=== PATIENT | female | born 1955 | race Caucasian/White ===

== ENCOUNTER 2016-12-17 16:05 | Emergency (ER) | payer BC ==
[~2016-12-17] VITALS: Ht 167.6 cm; Wt 121.0 kg
[~2016-12-17 16:05] MED LIST: ALBUAER19 INH; CMD25 PO; CMD5 PO; FLX10 PO; FURO-85 PO; HYDR-5688 PO; LVNIS120 SQ; MAGNESIUM PO; MOME50SP5; MULT-506 PO; NXM/40 PO; PRMVC TOP; SENN-61 PO; [UNRECOGNIZED DRUG - CODE] NAE; [UNRECOGNIZED DRUG - OTHER] PO
[2016-12-17 16:10] VITALS: TEMP 36.6; Ht 167.6 cm; Wt 121.0 kg
[2016-12-17 16:21] VITALS: O2SAT 100
[2016-12-17] MEDS ORDERED: LSX40 PO (16:46)
[2016-12-17] MEDS ORDERED: WARF5TAB7 PO (16:48)
[2016-12-17 16:53] LABS: BASO % 0.9 %; BASO ABS # 0.05 K/uL (0-0.2); COMPLETE YES; EOS % 3.4 %; HEMATOCRIT 44.8 % (37-47); IG% 0.5 %; LYMPH % 24.4 %; LYMPH ABS # 1.36 K/uL (1.2-3.4); MEAN CELL VOLUME 93.9 fL (80-100); MEAN CORPUSCULAR HEMOGLOBIN 32.1 pg (25-34); MEAN CORPUSCULAR HGB CONC 34.2 g/dl (32-36); MONO % 10.4 %; NEUT % 60.4 %; PLATELET COUNT 294 K/uL (130-400); RED BLOOD COUNT 4.77 M/uL (4.2-5.4); WHITE BLOOD COUNT 5.57 K/uL (4.8-10.8)
--- NOTE | 2016-12-17 16:57 | DIAGNOSTIC IMAGING REPORT ---
CHEST ONE VIEW PORTABLE HISTORY: 61 years-old Female Evaluate Fever/Sepsis COMPARISON: None available TECHNIQUE: Portable upright AP view of the chest FINDINGS: Cardiac silhouette is upper limits of normal. There is no pneumothorax, pleural effusion, focal airspace consolidation or overt pulmonary edema. The bones are grossly intact. IMPRESSION: No acute cardiopulmonary process. The above report was generated using voice recognition software. It may contain grammatical, syntax or spelling errors. Electronically signed by: Azael Nichols M.D. 12/17/2016 4:56 PM Dictated Date/Time: 12/17/2016 4:55 PM
[2016-12-17 17:01] LABS: INR 3.1 (0.9-1.1); PARTIAL THROMBOPLASTIN RATIO 1.5; PROTHROMBIN TIME (PATIENT) 34.9 SECONDS (9.0-12.0)
[2016-12-17 17:08] LABS: POINT OF CARE TROPONIN I < 0.030 ng/ml (0-0.045)
[2016-12-17 17:10] LABS: ALT/SGPT 19 U/L (12-78); AST/SGOT 13 U/L (15-37); BLOOD UREA NITROGEN 12 mg/dl (7-18); BUN/CREATININE RATIO 18.7 (10-20); CALCIUM 9.2 mg/dl (8.5-10.1); CARBON DIOXIDE 29 mmol/L (21-32); CHLORIDE 106 mmol/L (98-107); CREATININE 0.64 mg/dl (0.60-1.20); GLUCOSE 89 mg/dl (70-99); SODIUM 140 mmol/L (136-145)
[2016-12-17 17:15] LABS: ALKALINE PHOSPHATASE 137 U/L (45-117); CKMB/CK RATIO 0.7 (0-3.0)
--- NOTE | 2016-12-17 17:57 | EMERGENCY ROOM VISIT NOTE ---
History Report prepared by Leslie: Devante Elena Under the Supervision of: Dr. Philippe Crisostomo D.O. First contact with patient: 16:23 Chief Complaint: CHEST PAIN Stated Complaint: CHEST PAIN INTO BACK, TINGLING IN HANDS History of Present Illness The patient is a 61 year old female who presents to the Emergency Room with complaints of left sided dull chest pain that began 2 hours ago. She rates her pain a 4/10 in severity. At this time, the patient was walking down the hallway at school when she suddenly felt what she describes as a "punch" to her chest that went through to her back. This has never happened to her before. She notes that he pain is still there, but not as bad as it was when it started. When this occurred, the patient's states that she was very pale when he went to pick her up. She notes some increased work of breath before arrival, but she denies this symptom currently. She denies any fevers, chills, diaphoresis, nausea, vomiting, abdominal pain, shortness of breath, or leg pain/swelling at this time. 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 She has a history of a gastric bypass surgery. Source of History: patient Onset: 2 hours ago Position: chest (left) Symptom Intensity: 4/10 Quality: dull Timing: constant Associated Symptoms: + back pain, No fevers, No chills, No diaphoresis, No nausea, No vomiting, No abdominal pain Review of Systems See HPI for pertinent positives & negatives. A total of 10 systems reviewed and were otherwise negative. Family History Omitted secondary to the patient's age. Social History Smoking Status: Never Smoker Marital Status: Housing Status: lives with family Occupation Status: employed Current/Historical Medications Scheduled Esomeprazole Magnesium (Nexium), 40 MG PO QPM Furosemide (Furosemide), 40 MG PO DAILY Mometasone Furoate (Nasonex), 1 SPRAY NA QAM Multivitamin (Multivitamin), 1 TAB PO QPM Warfarin Sod (Jantoven), 5 MG PO DAILY [Calcium NITRATE], 1 TAB PO QPM [Magnesium], 500 MG PO BID Scheduled PRN Albuterol Inhaler (Ventolin Inhaler), 2 PUFFS INH QID PRN for SOB/Wheezing Allergies Coded Allergies: Amoxicillin (Verified Allergy, Unknown, HIVES, 12/17/16) Morphine (Verified Allergy, Unknown, HALLUCINATIONS, 12/17/16) Oxycodone (Unverified Allergy, Unknown, SEVERE PAIN, 12/17/16) Sulfa Antibiotics (Verified Allergy, Unknown, RASH, 12/17/16) Codeine (Verified Adverse Reaction, Unknown, IRRITABLE, 12/17/16) Physical Exam Vital Signs Date Time Temp Pulse Resp B/P (MAP) Pulse Ox O2 Delivery O2 Flow Rate FiO2 12/17/16 17:33 76 18 131/85 99 Room Air 12/17/16 16:44 100 Room Air 12/17/16 16:23 85 12/17/16 16:21 100 Room Air 12/17/16 16:10 36.6 81 16 148/91 98 Room Air Physical Exam CONSTITUTIONAL/VITAL SIGNS: Reviewed / noted above. GENERAL: Non-toxic in appearance. INTEGUMENTARY: Warm, dry, and [place]. HEAD: Normocephalic. EYES: without scleral icterus or trauma. ENT/OROPHARYNX: clear and moist. LYMPHADENOPATHY/NECK: Is supple without lymphadenopathy or meningismus. RESPIRATORY: Lungs clear and equal. CARDIOVASCULAR: Regular rate and rhythm. GI/ABDOMEN: Soft and nontender. No organomegaly or pulsatile mass. No rebound or guarding. Normal bowel sounds. EXTREMITIES: Warm and well perfused. BACK: No CVA tenderness. NEUROLOGICAL: Intact without focal deficits. PSYCHIATRIC: normal affect. MUSCULOSKELETAL: Normally developed with good muscle tone. Medical Decision & Procedures ER Provider Diagnostic Interpretation: Radiology results as stated below per my review and radiologist interpretation: CHEST ONE VIEW PORTABLE HISTORY: 61 years-old Female Evaluate Fever/Sepsis COMPARISON: None available TECHNIQUE: Portable upright AP view of the chest FINDINGS: Cardiac silhouette is upper limits of normal. There is no pneumothorax, pleural effusion, focal airspace consolidation or overt pulmonary edema. The bones are grossly intact. IMPRESSION: No acute cardiopulmonary process. The above report was generated using voice recognition software. It may contain grammatical, syntax or spelling errors. Electronically signed by: Azael Nichols M.D. 12/17/2016 4:56 PM Dictated Date/Time: 12/17/2016 4:55 PM Laboratory Results 12/17/16 16:40 Red Blood Count 4.77, Mean Corpuscular Volume 93.9, Mean Corpuscular Hemoglobin 32.1, Mean Corpuscular Hemoglobin Concent 34.2, Mean Platelet Volume 10.0, Neutrophils (%) (Auto) 60.4, Lymphocytes (%) (Auto) 24.4, Monocytes (%) (Auto) 10.4, Eosinophils (%) (Auto) 3.4, Basophils (%) (Auto) 0.9, Neutrophils # (Auto ) 3.36, Lymphocytes # (Auto) 1.36, Monocytes # (Auto) 0.58, Eosinophils # (Auto ) 0.19, Basophils # (Auto) 0.05 12/17/16 16:40 Test 12/17/16 16:40 12/17/16 16:49 White Blood Count 5.57 K/uL (4.8-10.8) Red Blood Count 4.77 M/uL (4.2-5.4) Hemoglobin 15.3 g/dL (12.0-16.0) Hematocrit 44.8 % (37-47) Mean Corpuscular Volume 93.9 fL (80-100) Mean Corpuscular Hemoglobin 32.1 pg (25-34) Mean Corpuscular Hemoglobin Concent 34.2 g/dl (32-36) Platelet Count 294 K/uL (130-400) Mean Platelet Volume 10.0 fL (7.4-10.4) Neutrophils (%) (Auto) 60.4 % Lymphocytes (%) (Auto) 24.4 % Monocytes (%) (Auto) 10.4 % Eosinophils (%) (Auto) 3.4 % Basophils (%) (Auto) 0.9 % Neutrophils # (Auto) 3.36 K/uL (1.4-6.5) Lymphocytes # (Auto) 1.36 K/uL (1.2-3.4) Monocytes # (Auto) 0.58 K/uL (0.11-0.59) Eosinophils # (Auto) 0.19 K/uL (0-0.5) Basophils # (Auto) 0.05 K/uL (0-0.2) RDW Standard Deviation 52.9 fL (36.4-46.3) RDW Coefficient of Variation 15.2 % (11.5-14.5) Immature Granulocyte % (Auto) 0.5 % Immature Granulocyte # (Auto) 0.03 K/uL (0.00-0.02) Prothrombin Time 34.9 SECONDS (9.0-12.0) Prothromb Time International Ratio 3.1 (0.9-1.1) Activated Partial Thromboplast Time 38.8 SECONDS (21.0-31.0) Partial Thromboplastin Ratio 1.5 Anion Gap 5.0 mmol/L (3-11) Est Creatinine Clear Calc Drug Dose 125.4 ml/min Estimated GFR () 113.2 Estimated GFR (Non- 97.7 BUN/Creatinine Ratio 18.7 (10-20) Calcium Level 9.2 mg/dl (8.5-10.1) Total Bilirubin 0.4 mg/dl (0.2-1) Direct Bilirubin < 0.1 mg/dl (0-0.2) Aspartate Amino Transf (AST/SGOT) 13 U/L (15-37) Alanine Aminotransferase (ALT/SGPT) 19 U/L (12-78) Alkaline Phosphatase 137 U/L (45-117) Total Creatine Kinase 105 U/L (26-192) Creatine Kinase MB 0.7 ng/ml (0.5-3.6) Creatine Kinase MB Ratio 0.7 (0-3.0) Troponin I < 0.015 ng/ml (0-0.045) Total Protein 7.6 gm/dl (6.4-8.2) Albumin 3.7 gm/dl (3.4-5.0) Lipase 100 U/L (73-393) Bedside D-Dimer 54 ng/mlFEU (0-450) Bedside Troponin I < 0.030 ng/ml (0-0.045) Laboratory results as stated above per my review. ECG Indication: chest pain Rate (beats per minute): 78 Rhythm: normal sinus Findings: no acute ischemic change, no ectopy ED Course 1623: Previous medical records were reviewed. The patient was evaluated in room B11B. A complete history and physical examination was performed. 1800: On reevaluation, the patient is resting. I discussed the results and findings with the patient. She verbalized agreement of the treatment plan. She was discharged home. Medical Decision Differentials considered include acute myocardial infarction, acute coronary syndrome, myocarditis, pericarditis, pericardial effusions /tamponade, esophageal perforation, thoracic aortic dissection, pulmonary embolism, pneumonia, pneumothorax, pancreatitis, shingles, acute cholecystitis, and perforated abdominal viscus. This is a 61-year-old female with a history of gastric bypass who presents to the ED with a chief complaint of left upper chest pain that radiates into her back. The patient started having the symptoms around 2:30 PM when she was walking down the [place]. She states that it felt like a soreness or tightness. She also states that the back of her bottom teeth felt a little weird. She denies having diaphoresis, nausea or shortness of breath although she stated that she had to concentrate on taking a deep breath. The patient reports being on Coumadin for history of a PE and factor V Leiden abnormality. The patient has a normal exam. Vital signs are normal. She is in no distress. An EKG shows a normal sinus rhythm. CBC is normal, INR is 3.1, d-dimer was normal, troponin is negative, complete metabolic panel was normal. Chest x-ray did not show acute disease. The patient was told results the test. She is felt to be stable for discharge. She was advised to return for worsening or new symptoms and otherwise follow-up with PCP for recheck. Medication Reconcilliation Current Medication List: was personally reviewed by me Blood Pressure Screening Patient's blood pressure: Elevated blood pressure Blood pressure disposition: Elevated BP felt to be situational Impression Primary Impression: Left sided chest pain Additional Impression: Back pain Scribe Attestation The scribe's documentation has been prepared under my direction and personally reviewed by me in its entirety. I confirm that the note above accurately reflects all work, treatment, procedures, and medical decision making performed by me. Departure Information Dispostion Home / Self-Care Referrals Ethan Wilcox M.D. (PCP) Forms Call Back Authorization, HOME CARE DOCUMENTATION FORM, IMPORTANT VISIT INFORMATION Patient Instructions Chest Pain - [facility], [facility] Additional Instructions Follow-up with your doctor for further care and evaluation in 1-2 days. Return to the emergency department for worsening or new symptoms or any concerns. You have been examined and treated today on an emergency basis only. This is not a substitute for, or an effort to provide, complete comprehensive medical care. It is impossible to recognize and treat all injuries or illnesses in a single emergency department visit. It is therefore important that you follow up closely with your doctor. Call as soon as possible for an appointment. Problem Qualifiers
[2016-12-17 18:16] VITALS: BP 117/81; PULSE 77; O2SAT 97
== END 2016-12-17 18:19 | disposition home or self-care (01) ==
LOC: C.EDB 16:06
DX: R07.9 Chest pain, unspecified (principal); M54.9 Dorsalgia, unspecified; Z98.84 Bariatric surgery status; Z79.01 Long term (current) use of anticoagulants; Z79.899 Other long term (current) drug therapy; Z86.711 Personal history of pulmonary embolism

== ENCOUNTER 2018-08-10 02:14 | Inpatient (IN) ==
[2018-08-10] MEDS ORDERED: ONDANSETRON INJ 2 MG/ML 2 ML VIAL IV STA (02:46)
[2018-08-10] MEDS ORDERED: SODIUM CHLORIDE 0.9% 1000ML 1,000 ML IV ONE (02:46)
[2018-08-10 02:54] LABS: Basophils # (auto) 0.01 K/uL (0-0.2); Basophils % (auto) 0.1 %; Eosinophils % (auto) 1.2 %; Hematocrit (blood only) 39.5 % (37-47); Hemoglobin 12.9 g/dL (12.0-16.0); Immature Granulocytes # (auto) 0.02 K/uL (0.00-0.02); Immature Granulocytes % (auto) 0.2 %; Lymphocytes # (auto) 0.89 K/uL (1.2-3.4); Lymphocytes % (auto) 10.7 %; Mean Corpuscular Hgb Conc 32.7 g/dL (32-36); Mean Platelet Volume 10.6 fL (7.4-10.4); Monocytes # (auto) 0.45 K/uL (0.11-0.59); Monocytes % (auto) 5.4 %; Neutrophils # (auto) 6.85 K/uL (1.4-6.5); Neutrophils % (auto) 82.4 %; Platelet Count 281 K/uL (130-400); RDW Standard Deviation 51.2 fL (36.4-46.3); White Blood Count 8.32 K/uL (4.8-10.8)
[2018-08-10] MEDS ORDERED: PANTOprazole 80 MG in DEXTROSE 5% 100 ML IV ONE (03:00)
[2018-08-10 03:01] LABS: iSTAT Creatinine 0.6 mg/dl (0.6-1.3); iSTAT Hemoglobin 12.9 g/dl (12.0-16.0); iSTAT Ionized Calcium 1.16 mmol/l (1.12-1.32); iSTAT Potassium 4.5 mEq/L (3.3-5.0)
[2018-08-10 03:06] LABS: INR 1.1 (0.9-1.1); Partial Thromboplastin Ratio 1.1; Partial Thromboplastin Time 29.3 Seconds (21.0-31.0); Prothrombin Time 11.4 Seconds (9.0-12.0)
[2018-08-10 03:19] LABS: Albumin Level 3.5 gm/dl (3.4-5.0); BUN Creatinine Ratio 53.5 (10-20); Bilirubin,Total 0.4 mg/dl (0.2-1); Calcium 8.7 mg/dl (8.5-10.1); Creatinine Clr Calc Pharmacy 123.4 ml/min; Est GFR (African American) 111.8; Est GFR (Non-African American) 96.5; Potassium 4.6 mmol/L (3.5-5.1); Total Protein 7.5 gm/dl (6.4-8.2)
[2018-08-10 03:20] LABS: Bilirubin Direct 0.1 mg/dl (0-0.2)
[2018-08-10] MEDS ORDERED: NITROGLYCERIN SL 0.4 MG/TAB TAB SL PRN (05:31)
[2018-08-10] MEDS ORDERED: FLUTICASONE PROPIONATE NA SPR 16 GM BTL PRN (05:31)
[2018-08-10] MEDS ORDERED: ACETAMINOPHEN 325 MG TAB PO PRN (05:31)
[2018-08-10] MEDS ORDERED: ALBUTEROL HFA 8 GM INHALER INH PRN (05:31)
[2018-08-10] MEDS ORDERED: HYDROmorphone INJ 0.5 MG/0.5 ML SYR IV PRN (05:31)
[2018-08-10] MEDS: SODIUM CHLORIDE 0.9% 1000ML 1,000 ML IV SCH ×2 (06:05→16:44)
[2018-08-10] MEDS: ONDANSETRON INJ 2 MG/ML 2 ML VIAL IV PRN ×2 (06:05→19:50)
--- NOTE | 2018-08-10 06:06 | Emergency Department Note ---
Entered by Scooby Cavanaugh acting as a scribe for Antonio Mixon MD ED Provider Note Name: Krystle Vergara Age: 62 Arrives Via: Private vehicle Informant: Patient and CC: Hematemesis, Hematochezia/Melena HPI: The patient is a 62 year old female who presents to the Emergency Room with complaints of intermittent hematochezia and hematemesis that began a couple of hours ago. The patient states that she has had 4 episodes of hematemesis over the past couple of hours. She also had a bowel movement that contained black stool, as well as red blood. The patient denies any history of similar symptoms. She has did have a gastric bypass surgery 11 years ago and is on Coumadin at baseline secondary to a history of DVT. The patient has a hip replacement surgery scheduled for this week, so her Coumadin was stopped 3 days ago. She started Lovenox today, which she has taken 2 dosages of. She is prescribed 120 mg of Lovenox BID. The patient denies any chest pain today, but does note that she felt "lightheaded" before she began vomiting last night. The patient does currently describe a discomfort in her abdomen as well as constant nausea. ROS: See above HPI for pertinent positives & negatives. A total of 10 systems reviewed and were otherwise negative. Past Medical History: Chronic back pain, DJD, DVT on Coumadin Past Surgical History: Gastric Bypass surgery Family History: non-contributory Social History: , Lives with spouse. Home Medications: Warfarin, Linzess, Gabapentin, Lasix, Nexium. Allergies Amoxicillin, Morphine, Oxycodone, Sulfa, Codeine Physical: Vitals: BP 152/88, Pulse 104, Resp 22, Temp 98.4, O2 sat of 97. Exam: GENERAL: Patient is uncomfortable appearing and mildly anxious appearing. In mild distress. EYES: No scleral icterus, unremarkable pupils. ENT: Mucous membranes moist, no nasal congestion. NECK: No masses appreciated, no meningismus, trachea is midline. RESPIRATORY: No dyspnea. Clear to auscultation and equal bilaterally. No wheeze, no rhonchi. CARDIOVASCULAR: Regular rate and rhythm. No murmurs, rubs, gallops appreciated. GASTROINTESTINAL: Abdomen soft, with vague epigastric tenderness to palpation, no peritonitis. Bowel sounds positive. No masses appreciated. BACK: No midline tenderness, no CVA tenderness EXTREMITIES: Normal motion all extremities, no cyanosis, no edema. NEUROLOGIC: Alert and oriented, no acute motor or sensory deficits, no focal weakness, cranial nerves grossly intact. SKIN: No rash, no jaundice, no diaphoresis. ED Course: Prior Medical Record, Triage/Nursing Notes, Medications, Allergies reviewed by Me Vital Signs: reviewed and remarkable for wnl Labs: Reviewed and remarkable for elevated BUN, mildly dropped wbc Interventions: Saline Lock, NSS bolus 1 L IV, Protonix 80mg IV, Zofran 4mg IV Consults: 0345: I reviewed the patient's case with Dr. Calderon - [facility]. He will evaluate the patient for further management. 0414: I discussed the case with Dr. Gage - General Surgery. She will see the patient in consult. Reassessments/Times: 0313: I checked on the patient. She is still mildly nauseous. She wants to hold-off on further medications. She states that her stomach feels "full of blood." She is agreeable to admission. 0352: Nursing staff states that the patient became near-syncopal after sitting up. She is having a large bloody bowel movement. 0355: I checked on the patient. She is pale and is feeling much better after the large bloody bowel movement. I am paging GI to discuss the case with them. Blood pressure: Normal. No Referral necessary Disposition: Hospitalization Differentials: Etiologies such as esophagitis, variceal bleed, Boer[place]aves, [place] tear, gastritis, peptic ulcer disease, AVM, inflammatory bowel disease, ischemia, diverticulosis, colitis, malignancy, coagulopathy, thrombocytopenia, fissure, hemorrhoid, epistaxis , as well as others were entertained. Medical Decision Making: Pleasant 62 yr old female 11 yrs post Gastric Bypass who just started Lovenox yesterday and had 2 injections of 120mg due to bridge coumadin prior to right hip surgery. She notes gastroenteritis a few days ago as well as having not taken her omeprazole in quite some time. She is vomiting bloody emesis and is having large bloody bowel movements. Did have near syncopal event while in ED during large bloody BM but following this feeling much improved and vitals stable. Type and cross for 2 sent though with stable vitals only mild Hgb drop to 12 will hold on transfusion at this time. She was rechecked several times and stable on rechecks at time of admission. Hospitalist and Gastro on board with plan for admission and likely endo in next few hours. Due to severe limitations on Protonix she was given bolus with gtt here in ED. Impression: Upper GI bleed Anticoagulated state Antonio Mixon MD The scribe's documentation has been prepared under my direction and personally reviewed by me in its entirety. I confirm that the note above accurately reflects all work, treatment, procedures, and medical decision making performed by me. Impression & Plan GI bleed, Anticoagulated Past Med/Surg History Medical History Chronic back pain DJD (degenerative joint disease) of knee (Acute) Surgical History H/O gastric bypass Family History Other Kidney stone Social History Preferred Language: Ukrainian Communication Ability: Effective Visual Impairment: No Limitations Hearing Ability: Normal Certified Juvenile Probation Officer Required: No Beliefs That Will Affect Care: None marital status: marital status details: Current Living Situation: Spouse current occupational status: employed current occupation: Teacher Other Information That Helps Us Care for You: No Feels Safe at Home: Yes Safety Concerns: Feels Safe At This Time Smoking Status: Never smoker Do You Dip or Chew Tobacco: No Second Hand Exposure: No Tobacco Cessation Education Requested by Patient: No Hx Alcohol Use: Yes Alcohol type: hard liquor Hx Substance Use: No Results & Data Vital Signs Vital Signs - 24 hr 08/10/18 02:24 08/10/18 02:40 08/10/18 03:52 Temperature 36.9 C Temperature Source Oral Sepsis Recent Fever Within 48 Hours No Sepsis New/Unexplained Change in Mental Status No Sepsis Action Taken by Nursing No Action Required Pulse Rate 104 H Pulse Rate [Right Finger] 80 Pulse Rhythm Regular Pulse Strength Normal Respiratory Rate 22 16 Respiratory Effort / Characteristics Non-Labored Spontaneous Respiratory Depth Normal Respiratory Pattern Regular Blood Pressure Blood Pressure [Right Arm] 152/88 H 131/74 Blood Pressure Mean [Right Arm] 109 93 Blood Pressure Position [Right Arm] Lying Pulse Oximetry 97 97 Oxygen Delivery Method Room Air Room Air 08/10/18 04:08 08/10/18 05:06 08/10/18 05:35 Temperature 36.6 C Temperature Source Oral Sepsis Recent Fever Within 48 Hours Sepsis New/Unexplained Change in Mental Status Sepsis Action Taken by Nursing Pulse Rate 89 Pulse Rate [Right Finger] 83 82 Pulse Rhythm Pulse Strength Respiratory Rate 18 20 17 Respiratory Effort / Characteristics Non-Labored Spontaneous Non-Labored Respiratory Depth Normal Normal Respiratory Pattern Regular Blood Pressure 108/75 Blood Pressure [Right Arm] 109/74 117/73 Blood Pressure Mean [Right Arm] 85 87 Blood Pressure Position [Right Arm] Lying Pulse Oximetry 97 97 98 Oxygen Delivery Method Room Air Room Air Room Air Home Medications Current Medication List: was personally reviewed by me Laboratory Data Attestation: I reviewed the patient's lab results. Result diagrams: 08/10/18 02:34 08/10/18 02:34 Lab Results 08/10/18 08/10/18 08/10/18 Range/Units 02:34 02:34 02:34 WBC 8.32 (4.8-10.8) K/uL RBC 4.20 (4.2-5.4) M/uL Hgb 12.9 (12.0-16.0) g/dL POC Hgb (12.0-16.0) g/dl Hct 39.5 (37-47) % POC Hct (37-47) % MCV 94.0 (80-100) fL MCH 30.7 (25-34) pg MCHC 32.7 (32-36) g/dL RDW Std Deviation 51.2 H (36.4-46.3) fL RDW Coeff of Mary Ellen 15.0 H (11.5-14.5) % Plt Count 281 (130-400) K/uL MPV 10.6 H (7.4-10.4) fL Immature Gran % (Auto) 0.2 % Neut % (Auto) 82.4 % Lymph % (Auto) 10.7 % [place] % (Auto) 5.4 % Eos % (Auto) 1.2 % Baso % (Auto) 0.1 % Immature Gran # (Auto) 0.02 (0.00-0.02) K/uL Neut # (Auto) 6.85 H (1.4-6.5) K/uL Lymph # (Auto) 0.89 L (1.2-3.4) K/uL [place] # (Auto) 0.45 (0.11-0.59) K/uL Eos # (Auto) 0.10 (0-0.5) K/uL Baso # (Auto) 0.01 (0-0.2) K/uL PT 11.4 (9.0-12.0) Seconds INR 1.1 (0.9-1.1) APTT 29.3 (21.0-31.0) Seconds PTT Ratio 1.1 POC Sodium (135-144) mEq/L Sodium 140 (136-145) mmol/L POC Potassium (3.3-5.0) mEq/L Potassium 4.6 (3.5-5.1) mmol/L POC Chloride (101-112) mEq/L Chloride 109 H (98-107) mmol/L Carbon Dioxide 27 (21-32) mmol/L POC Total CO2 (24-31) mEq/l Anion Gap 4.0 (3-11) POC Anion Gap (16-25) mmol/L POC BUN (7-18) mg/dl BUN 35 H (7-18) mg/dl Creatinine 0.65 (0.6-1.2) mg/dl POC Creatinine (0.6-1.3) mg/dl Est Cr Clr Drug Dosing 123.4 ml/min Est GFR ( Amer) 111.8 Est GFR (Non-Af Amer) 96.5 BUN/Creatinine Ratio 53.5 H (10-20) Glucose 122 H (70-99) mg/dl POC Glucose (other) (70-99) mg/dl Calcium 8.7 (8.5-10.1) mg/dl POC Ioniz Calcium Lee (1.12-1.32) mmol/l Total Bilirubin 0.4 (0.2-1) mg/dl Direct Bilirubin 0.1 (0-0.2) mg/dl AST 18 (15-37) U/L ALT 21 (12-78) U/L Alkaline Phosphatase 102 (45-117) U/L Total Protein 7.5 (6.4-8.2) gm/dl Albumin 3.5 (3.4-5.0) gm/dl Lipase 75 (73-393) U/L Specimen Hemolysis Blood Type Antibody Screen Crossmatch 08/10/18 08/10/18 Range/Units 02:48 03:43 WBC (4.8-10.8) K/uL RBC (4.2-5.4) M/uL Hgb (12.0-16.0) g/dL POC Hgb 12.9 (12.0-16.0) g/dl Hct (37-47) % POC Hct 38 (37-47) % MCV (80-100) fL MCH (25-34) pg MCHC (32-36) g/dL RDW Std Deviation (36.4-46.3) fL RDW Coeff of Mary Ellen (11.5-14.5) % Plt Count (130-400) K/uL MPV (7.4-10.4) fL Immature Gran % (Auto) % Neut % (Auto) % Lymph % (Auto) % [place] % (Auto) % Eos % (Auto) % Baso % (Auto) % Immature Gran # (Auto) (0.00-0.02) K/uL Neut # (Auto) (1.4-6.5) K/uL Lymph # (Auto) (1.2-3.4) K/uL [place] # (Auto) (0.11-0.59) K/uL Eos # (Auto) (0-0.5) K/uL Baso # (Auto) (0-0.2) K/uL PT (9.0-12.0) Seconds INR (0.9-1.1) APTT (21.0-31.0) Seconds PTT Ratio POC Sodium 142 (135-144) mEq/L Sodium (136-145) mmol/L POC Potassium 4.5 (3.3-5.0) mEq/L Potassium (3.5-5.1) mmol/L POC Chloride 105 (101-112) mEq/L Chloride (98-107) mmol/L Carbon Dioxide (21-32) mmol/L POC Total CO2 24 (24-31) mEq/l Anion Gap (3-11) POC Anion Gap 19.0 (16-25) mmol/L POC BUN 32 H (7-18) mg/dl BUN (7-18) mg/dl Creatinine (0.6-1.2) mg/dl POC Creatinine 0.6 (0.6-1.3) mg/dl Est Cr Clr Drug Dosing ml/min Est GFR ( Amer) Est GFR (Non-Af Amer) BUN/Creatinine Ratio (10-20) Glucose (70-99) mg/dl POC Glucose (other) 125 H (70-99) mg/dl Calcium (8.5-10.1) mg/dl POC Ioniz Calcium Lee 1.16 (1.12-1.32) mmol/l Total Bilirubin (0.2-1) mg/dl Direct Bilirubin (0-0.2) mg/dl AST (15-37) U/L ALT (12-78) U/L Alkaline Phosphatase (45-117) U/L Total Protein (6.4-8.2) gm/dl Albumin (3.4-5.0) gm/dl Lipase (73-393) U/L Specimen Hemolysis Blood Type A Positive Antibody Screen NEGATIVE Crossmatch See Detail Administered Medications Discontinued Medications Pantoprazole Sodium 80 mg/ (Dextrose) 120 mls @ 480 mls/hr IV NOW ONE Stop: 08/10/18 03:14 Last Infusion: 08/10/18 03:24 Dose: 0 mls/hr Documented by: [id number] Admin: 08/10/18 03:05 Dose: 480 mls/hr Documented by: [id number] Sodium Chloride (Nss 1000ml) 1,000 mls @ 999 mls/hr IV .[id number] ONE Stop: 08/10/18 03:46 Last Infusion: 08/10/18 03:48 Dose: 0 mls/hr Documented by: [id number] Admin: 08/10/18 02:55 Dose: 999 mls/hr Documented by: [id number] Ondansetron HCl (Zofran) 4 mg IV NOW STA Stop: 08/10/18 02:47 Last Admin: 08/10/18 02:53 Dose: 4 mg Documented by: [id number] Blood Pressure Blood Pressure Findings: Elevated blood pressure Blood Pressure Disposition: further management by hospitalist Discharge Plan Visit Data *Final* Discharge Date/Time: 08/10/18 05:06 Chief Complaint: GI Assessment Stated Complaint: VOMITING BLOOD, BLOOD IN STOOL ED Provider: Antonio Mixon Discharge Problem: GI bleed, Anticoagulated Patient Disposition: Admitted As Inpatient Discharge Instructions Interventions: ED Discharge Assessment Last Done: 08/10/18 05:06 Discharge Problem: GI bleed Qualifiers: GI bleed type/associated pathology: unspecified gastrointestinal hemorrhage type Qualified Code(s): K92.2 - Gastrointestinal hemorrhage, unspecified The scribe's documentation has been prepared under my direction and personally reviewed by me in its entirety. I confirm that the note above accurately re flects all work, treatment, procedures, and medical decision making performed by me.
[2018-08-10] MEDS: PANTOprazole 40 MG in DEXTROSE 5% 100 ML IV SCH ×4 (06:44→20:30)
[2018-08-10 07:21] LABS: Basophils # (auto) 0.01 K/uL (0-0.2); Basophils % (auto) 0.2 %; Eosinophils # (auto) 0.02 K/uL (0-0.5); Eosinophils % (auto) 0.3 %; Hematocrit (blood only) 31.4 % (37-47); Hemoglobin 10.1 g/dL (12.0-16.0); Immature Granulocytes # (auto) 0.02 K/uL (0.00-0.02); Immature Granulocytes % (auto) 0.3 %; Lymphocytes # (auto) 0.68 K/uL (1.2-3.4); Lymphocytes % (auto) 10.6 %; Mean Corpuscular Hgb Conc 32.2 g/dL (32-36); Mean Platelet Volume 10.1 fL (7.4-10.4); Monocytes # (auto) 0.25 K/uL (0.11-0.59); Monocytes % (auto) 3.9 %; Neutrophils # (auto) 5.42 K/uL (1.4-6.5); Neutrophils % (auto) 84.7 %; Platelet Count 242 K/uL (130-400); RDW Standard Deviation 51.3 fL (36.4-46.3); Red Blood Count 3.34 M/uL (4.2-5.4)
[2018-08-10 07:50] LABS: Calcium 7.9 mg/dl (8.5-10.1); Creatinine Clr Calc Pharmacy 140.7 ml/min; Est GFR (African American) 116.1; Est GFR (Non-African American) 100.2; Magnesium 2.4 mg/dl (1.8-2.4); Potassium 4.7 mmol/L (3.5-5.1)
[2018-08-10] MEDS: FUROSEMIDE 40 MG TAB PO SCH (07:57)
[2018-08-10] MEDS: GABAPENTIN 100 MG CAP PO SCH ×3 (07:57→20:29)
--- NOTE | 2018-08-10 08:41 | History and Physical Report ---
DATE OF ADMISSION: 08/10/2018 CHIEF COMPLAINT: Hemoptysis. 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 The patient had severe osteoarthritis of the right hip and plan for surgery coming Wednesday and Coumadin was stopped and she was placed on Lovenox bridge. She took couple of Lovenox doses 120 mg twice daily and today around 1:00am today, she started having bloody vomitus, several episodes and she also vomited in the parking place and also in the ER and she is also having bloody and black stools and she has feeling of stomach bloating and uncomfortable. In the ER room she was sitting on the chair, the patient suddenly blacked out and passed out for a couple of seconds. Currently, she is back in the bed and hemodynamically stable. Denies any headache, no blurred visions, no earache, no blurriness, no sore throat, no difficulty swallowing. Appetite is otherwise okay. No chest pain. Just feels her abdomen is bloated and feels some burning sensation in the chest. No shortness of breath, no cough, no fever, no chills. Normal bladder movements. No bloody micturition. Has chronic swelling in the lower extremities which is the same, no change. Ambulates with help of cane. Lives with her . ALLERGIES: ADHESIVE TAPE, AMOXICILLIN, MORPHINE, OXYCODONE, SULFA ANTIBIOTICS, TORADOL. PAST MEDICAL HISTORY: As mentioned above. PAST SURGICAL HISTORY: , colonoscopy with biopsy, dilatation and curettage, excision of excessive skin, panniculectomy, appendectomy, tonsillectomy, cholecystectomy, repair of bladder to vagina, cystocele, reverse knee joint replacement, upper endoscopy, IVC filter placement, wedge biopsy of the liver, gastric revision for obesity. MEDICATIONS: The patient is on gabapentin 100 mg p.o. t.i.d., MiraLax 119 grams, vitamin D 50,000 units twice a week, Lovenox 120 mg b.i.d., Coumadin as directed, Lasix 40 mg p.o. daily, omeprazole 40 mg p.o. daily, Flonase 1-2 squirts in each nostril daily, Tylenol extra 500 mg every 6 hours p.r.n. pain, ascorbic acid 1000 mg p.o. daily, vitamin B12 injection every 3 months, calcium 600 plus D 1 tablet daily, multivitamins 1 tablet daily. FAMILY HISTORY: Significant for: Father has allergies. Mother has allergies. Sister has allergies. Father has stomach cancer. SOCIAL HISTORY: , lives with her , passive smoking. Father used to smoke when she was growing up. Occasional mixed drink. No drug use. REVIEW OF SYMPTOMS: As per HPI. Rest of review of systems is negative. PHYSICAL EXAMINATION: GENERAL: The patient is morbidly obese, not in acute distress. VITAL SIGNS: Temperature 36.9, pulse 83, respiratory rate 18, blood pressure 109/74, oxygen 97% room air. HEENT: No pallor, no icterus. Pupils equal, round, and reactive. NECK: No JVD, no neck masses, no carotid bruits. CARDIOVASCULAR: S1, S2 heard, regular rate and rhythm, no murmur, no gallop. RESPIRATORY SYSTEM: Normal AP diameter. No accessory muscle use. No wheezing, no crackles. ABDOMEN: Soft, bowel sounds present. Diffuse abdominal discomfort. No guarding, no rigidity. CENTRAL NERVOUS SYSTEM: Cranial nerves II-XII grossly intact. Nonfocal. EXTREMITIES: Lower extremity edema present. No erythema seen. LABORATORIES: WBC 8.3, hemoglobin 12.9, hematocrit 39.5, platelets 281. PT 11.4, INR 1.1, APTT 29.3. Sodium 140, potassium 4.6, chloride 109, bicarbonate 27, BUN 35, creatinine 0.6, serum glucose 122, calcium 8.7, total bilirubin 0.4, direct bilirubin 0.1, AST 18, ALT 21, alkaline phosphatase 102, lipase 75. ASSESSMENT AND PLAN: This is a 62-year-old female who presents with hemoptysis and bloody stools. 1. Hemoptysis and blood in the stools. The patient is on Coumadin since 1998 when she has a history of DVT, PE and she is supposed to get right hip surgery coming Wednesday, so Coumadin was held and she was bridged with Lovenox. She had a couple of doses of 120 mg twice daily dose and today morning had hemoptysis and bloody bowel movement. Hemoglobin is stable currently at 12.9, but we will closely follow the H and H . Iv Protonix drip. Plan to do an endoscopy soon and closely monitor in the tele floor. 2. Syncope in the ER while she was sitting in a chair, could be mostly vasovagal. We will monitor in the tele floor. 3. History of deep venous thrombosis and pulmonary embolism in 1998 when when she was on high dose of Depo-Provera. She is status post IVC filter. Currently, anticoagulation is held for GI bleed. Close monitor. 4. History of gastric bypass surgery, multivitamins and vitamin B12 shot as recommended. 5. History of hypertension, on diuretics. Monitor the blood pressure in the hospital. 6. History of gastroesophageal reflux disease. Currently on Protonix drip. 7. Allergic rhinitis, on nasal spray. 8. Deep venous thrombosis prophylaxis, sequential compression devices for now. 9. Disposition: Close monitoring in the tele floor. Level 1 full code. MTDD
--- NOTE | 2018-08-10 09:17 | Gastrointestinal Consultation ---
Date of Consultation August 10, 2018 Assessment & Plan (1) GI bleed: 62 year old female with history of hypercoaguable state currently on a lovenox bridge, s/p RYGB who presents w/ hematemesis prior to arrival, melena and persistent coffee ground emesis at 0815. She is awake, alert and oriented w/ stable VS, HGB 10. DDX discussed. I was unable to access OP [facility] records but she reports recent EGD/Colonoscopy w/o significant findings NPO IV PPI bolus, drip EGD today, renitaley in the OR as she had emesis this AM Trend H&H Monitor and document GI output Transfuse PRN per protocol Would hold AC if able Please see report of EGD once completed for additional recommendations Thank you for allowing us to participate in the care of this patient. Please call with any acute changes, questions or concerns. Please see addendum below with additional recommendation from my supervising physician. Supervising Physician Co-Signing Physician Notes I have seen and examined the patient and discussed the management with BARI Branch. 62 yo fm with a history of rygb, on coumadin for history of dvt/pe - stopped 5 days ago and started Lovenox on 08/09, presented to the ER early 08/10 with reported melena, 2 gram drop in hgb, this morning with coffee ground hematemesis. PE: no acute distress other than feeling nauseous- alert and oriented, CV - rrr no mrg, Pulm- ctab, Abd - soft nt nd +bs, Ext - no leee labs significant for 2 gram drop in hgb, bun rise Received IV Protonix 80 mg. Family at bedside. Patient consentable for egd- will consent in the pre-op area. EGD today in the OR for evaluation of melena/coffee ground emesis. History of Present Illness Reason for Consultation: hematemesis Requesting Physician: Louis Attending Physician: Venu Myers MD History of Present Illness 62 year old female with history of asthma, HTN, IBS, prior DVT/PE secondary to hypercoaguable state on coumadin, obesity s/p gastric who presented to the ED w/ melena, hematemesis. Pt was seen and evaluated, chart reviewed. Notes she currently is on a lovenox bridge for an ortho procedure. Last dose of coumadin was on Wednesday, last dose of lovenox was prior to arrival. Yesterday, developed upper abdominal pain associated w/ nausea and vomiting. At home emesis was reported to be bright red blood. notes about 4 episodes of bloody emesis. After this, she reports 2 episodes of melena follows by [facility]. In the ED she had a near syncopal event w/ additional melena. She was admitted to the ICU. This AM, prior to arrival pt had episode of coffee ground appearing emesis around 0800. She is awake, alert and upright in bed. VS stable w/ JOURNEY[employer] PATTERN[employer]KER 104/67 pulse 88. On room air. HGB 10 with slight BUN elevation at 33. She endorses recent OP EGD/Colon which were reported unremarkable other than diveticulosis. Unfortunately this AM I was unable to access OP [facility] records. Allergies Allergy/AdvReac Type Severity Reaction Status Date / Time amoxicillin Allergy Intermediate HIVES Verified 08/10/18 04:12 morphine Allergy Intermediate HALLUCINATI Verified 08/10/18 04:12 ONS oxycodone Allergy Intermediate SEVERE PAIN Verified 08/10/18 04:12 Sulfa (Sulfonamide Allergy Mild RASH Verified 08/10/18 04:12 Antibiotics) codeine AdvReac Intermediate IRRITABLE Verified 08/10/18 04:12 Home Medications Home Medications Medication Instructions Recorded Confirmed Type acetaminophen [Tylenol Extra 1,000 mg PO Q4 PRN 06/22/18 08/10/18 History Strength] albuterol sulfate [Ventolin HFA] 2 puff INHALATION QID PRN 06/22/18 08/10/18 History ergocalciferol (vitamin D2) 50,000 unit PO 2XWK 06/22/18 08/10/18 History [Vitamin D2] furosemide [Lasix] 40 mg PO QAM 06/22/18 08/10/18 History gabapentin 200 mg PO TID 06/22/18 08/10/18 History hydrocodone-acetaminophen 1 tab PO Q6H PRN #10 tab 06/22/18 08/10/18 Rx mometasone [Nasonex] 1 spray INTRANASAL DAILY PRN 06/22/18 08/10/18 History multivitamin 1 tab PO QPM 06/22/18 08/10/18 History warfarin [Coumadin] 2.5 mg PO 2XWK 06/22/18 08/10/18 History warfarin [Coumadin] 5 mg PO 5XWK 06/22/18 08/10/18 History enoxaparin 120 mg SUBCUT BID 08/10/18 08/10/18 History polyethylene glycol 3350 [Miralax] 17 g PO DAILY 08/10/18 08/10/18 History Patient History Medical History Chronic back pain DJD (degenerative joint disease) of knee (Acute) Surgical History H/O gastric bypass Family History Other Kidney stone Social History Preferred Language: Belarusian Communication Ability: Effective Visual Impairment: No Limitations Hearing Ability: Normal Phone Technician Required: No Beliefs That Will Affect Care: None marital status: marital status details: Current Living Situation: Spouse current occupational status: employed current occupation: Teacher Other Information That Helps Us Care for You: No Feels Safe at Home: Yes Safety Concerns: Feels Safe At This Time Smoking Status: Never smoker Do You Dip or Chew Tobacco: No Second Hand Exposure: No Tobacco Cessation Education Requested by Patient: No Hx Alcohol Use: Yes Alcohol type: hard liquor Hx Substance Use: No Review of Systems Constitutional: + fatigue; no fever, no chills and no body aches Respiratory: no cough, no dyspnea, no pain on inspiration and no wheezing Cardiovascular: no chest pain, no radiating jaw, neck or arm pain, no dyspnea on exertion and no palpitations Gastrointestinal: + vomiting (last episode 814), + coffee ground emesis, + blood in stools and + melena; no abdominal pain, no belching, no bloating, no early satiety, no heartburn, no nausea, no hematemesis, no pain with swallowing, no dysphagia, no cramping, no excessive flatulence, no change in bowel habits, no change in stools, no constipation, no diarrhea/loose stools, no fecal incontinence, no constant urge to pass stools and no problem reported Physical Exam Constitutional: WD/WN, vitals as above Respiratory: normal respiratory effort, lungs clear to auscultation Cardiovascular: RRR, no murmur, no edema Gastrointestinal (Abdomen): Percussion/Palpation: + abdomen tender and abdomen soft; no guarding, abdomen not rigid and no abdominal mass Skin: no rashes, warm and dry Results & Data Vital Signs (Past 12 Hours) Vital Signs Temp Pulse Pulse Resp BP BP Pulse Ox 08/10/18 08:00 36.8 C 89 88 20 104/67 96 08/10/18 06:08 08/10/18 05:35 36.6 C 82 17 117/73 98 08/10/18 05:06 89 20 108/75 97 08/10/18 04:08 83 18 109/74 97 08/10/18 03:52 80 16 131/74 97 08/10/18 02:40 152/88 H 08/10/18 02:24 36.9 C 104 H 22 97 Pulse Ox 08/10/18 08:00 08/10/18 06:08 98 08/10/18 05:35 08/10/18 05:06 08/10/18 04:08 08/10/18 03:52 08/10/18 02:40 08/10/18 02:24 Laboratory Results 08/10/18 08/10/18 08/10/18 Range/Units 07:08 07:08 07:08 WBC 6.40 (4.8-10.8) K/uL RBC 3.34 L (4.2-5.4) M/uL Hgb 10.1 L (12.0-16.0) g/dL POC Hgb (12.0-16.0) g/dl Hct 31.4 L (37-47) % POC Hct (37-47) % MCV 94.0 (80-100) fL MCH 30.2 (25-34) pg MCHC 32.2 (32-36) g/dL RDW Std Deviation 51.3 H (36.4-46.3) fL RDW Coeff of Mary Ellen 15.0 H (11.5-14.5) % Plt Count 242 (130-400) K/uL MPV 10.1 (7.4-10.4) fL Immature Gran % (Auto) 0.3 % Neut % (Auto) 84.7 % Lymph % (Auto) 10.6 % [place] % (Auto) 3.9 % Eos % (Auto) 0.3 % Baso % (Auto) 0.2 % Immature Gran # (Auto) 0.02 (0.00-0.02) K/uL Neut # (Auto) 5.42 (1.4-6.5) K/uL Lymph # (Auto) 0.68 L (1.2-3.4) K/uL [place] # (Auto) 0.25 (0.11-0.59) K/uL Eos # (Auto) 0.02 (0-0.5) K/uL Baso # (Auto) 0.01 (0-0.2) K/uL PT (9.0-12.0) Seconds INR (0.9-1.1) APTT (21.0-31.0) Seconds PTT Ratio POC Sodium (135-144) mEq/L Sodium 142 (136-145) mmol/L POC Potassium (3.3-5.0) mEq/L Potassium 4.7 (3.5-5.1) mmol/L POC Chloride (101-112) mEq/L Chloride 113 H (98-107) mmol/L Carbon Dioxide 27 (21-32) mmol/L POC Total CO2 (24-31) mEq/l Anion Gap 2.0 L (3-11) POC Anion Gap (16-25) mmol/L POC BUN (7-18) mg/dl BUN 33 H (7-18) mg/dl Creatinine 0.58 L (0.6-1.2) mg/dl POC Creatinine (0.6-1.3) mg/dl Est Cr Clr Drug Dosing 140.7 ml/min Est GFR ( Amer) 116.1 Est GFR (Non-Af Amer) 100.2 BUN/Creatinine Ratio 57.0 H (10-20) Glucose 111 H (70-99) mg/dl POC Glucose (other) (70-99) mg/dl Calcium 7.9 L (8.5-10.1) mg/dl POC Ioniz Calcium Lee (1.12-1.32) mmol/l Magnesium 2.4 (1.8-2.4) mg/dl Total Bilirubin (0.2-1) mg/dl Direct Bilirubin (0-0.2) mg/dl AST (15-37) U/L ALT (12-78) U/L Alkaline Phosphatase (45-117) U/L Total Protein (6.4-8.2) gm/dl Albumin (3.4-5.0) gm/dl Lipase (73-393) U/L Specimen Hemolysis Hepatitis C Ab Screen Neg (Neg) Blood Type Antibody Screen Crossmatch 08/10/18 08/10/18 08/10/18 Range/Units 03:43 02:48 02:34 WBC (4.8-10.8) K/uL RBC (4.2-5.4) M/uL Hgb (12.0-16.0) g/dL POC Hgb 12.9 (12.0-16.0) g/dl Hct (37-47) % POC Hct 38 (37-47) % MCV (80-100) fL MCH (25-34) pg MCHC (32-36) g/dL RDW Std Deviation (36.4-46.3) fL RDW Coeff of Mary Ellen (11.5-14.5) % Plt Count (130-400) K/uL MPV (7.4-10.4) fL Immature Gran % (Auto) % Neut % (Auto) % Lymph % (Auto) % [place] % (Auto) % Eos % (Auto) % Baso % (Auto) % Immature Gran # (Auto) (0.00-0.02) K/uL Neut # (Auto) (1.4-6.5) K/uL Lymph # (Auto) (1.2-3.4) K/uL [place] # (Auto) (0.11-0.59) K/uL Eos # (Auto) (0-0.5) K/uL Baso # (Auto) (0-0.2) K/uL PT (9.0-12.0) Seconds INR (0.9-1.1) APTT (21.0-31.0) Seconds PTT Ratio POC Sodium 142 (135-144) mEq/L Sodium 140 (136-145) mmol/L POC Potassium 4.5 (3.3-5.0) mEq/L Potassium 4.6 (3.5-5.1) mmol/L POC Chloride 105 (101-112) mEq/L Chloride 109 H (98-107) mmol/L Carbon Dioxide 27 (21-32) mmol/L POC Total CO2 24 (24-31) mEq/l Anion Gap 4.0 (3-11) POC Anion Gap 19.0 (16-25) mmol/L POC BUN 32 H (7-18) mg/dl BUN 35 H (7-18) mg/dl Creatinine 0.65 (0.6-1.2) mg/dl POC Creatinine 0.6 (0.6-1.3) mg/dl Est Cr Clr Drug Dosing 123.4 ml/min Est GFR ( Amer) 111.8 Est GFR (Non-Af Amer) 96.5 BUN/Creatinine Ratio 53.5 H (10-20) Glucose 122 H (70-99) mg/dl POC Glucose (other) 125 H (70-99) mg/dl Calcium 8.7 (8.5-10.1) mg/dl POC Ioniz Calcium Lee 1.16 (1.12-1.32) mmol/l Magnesium (1.8-2.4) mg/dl Total Bilirubin 0.4 (0.2-1) mg/dl Direct Bilirubin 0.1 (0-0.2) mg/dl AST 18 (15-37) U/L ALT 21 (12-78) U/L Alkaline Phosphatase 102 (45-117) U/L Total Protein 7.5 (6.4-8.2) gm/dl Albumin 3.5 (3.4-5.0) gm/dl Lipase 75 (73-393) U/L Specimen Hemolysis Hepatitis C Ab Screen (Neg) Blood Type A Positive Antibody Screen NEGATIVE Crossmatch See Detail 08/10/18 08/10/18 Range/Units 02:34 02:34 WBC 8.32 (4.8-10.8) K/uL RBC 4.20 (4.2-5.4) M/uL Hgb 12.9 (12.0-16.0) g/dL POC Hgb (12.0-16.0) g/dl Hct 39.5 (37-47) % POC Hct (37-47) % MCV 94.0 (80-100) fL MCH 30.7 (25-34) pg MCHC 32.7 (32-36) g/dL RDW Std Deviation 51.2 H (36.4-46.3) fL RDW Coeff of Mary Ellen 15.0 H (11.5-14.5) % Plt Count 281 (130-400) K/uL MPV 10.6 H (7.4-10.4) fL Immature Gran % (Auto) 0.2 % Neut % (Auto) 82.4 % Lymph % (Auto) 10.7 % [place] % (Auto) 5.4 % Eos % (Auto) 1.2 % Baso % (Auto) 0.1 % Immature Gran # (Auto) 0.02 (0.00-0.02) K/uL Neut # (Auto) 6.85 H (1.4-6.5) K/uL Lymph # (Auto) 0.89 L (1.2-3.4) K/uL [place] # (Auto) 0.45 (0.11-0.59) K/uL Eos # (Auto) 0.10 (0-0.5) K/uL Baso # (Auto) 0.01 (0-0.2) K/uL PT 11.4 (9.0-12.0) Seconds INR 1.1 (0.9-1.1) APTT 29.3 (21.0-31.0) Seconds PTT Ratio 1.1 POC Sodium (135-144) mEq/L Sodium (136-145) mmol/L POC Potassium (3.3-5.0) mEq/L Potassium (3.5-5.1) mmol/L POC Chloride (101-112) mEq/L Chloride (98-107) mmol/L Carbon Dioxide (21-32) mmol/L POC Total CO2 (24-31) mEq/l Anion Gap (3-11) POC Anion Gap (16-25) mmol/L POC BUN (7-18) mg/dl BUN (7-18) mg/dl Creatinine (0.6-1.2) mg/dl POC Creatinine (0.6-1.3) mg/dl Est Cr Clr Drug Dosing ml/min Est GFR ( Amer) Est GFR (Non-Af Amer) BUN/Creatinine Ratio (10-20) Glucose (70-99) mg/dl POC Glucose (other) (70-99) mg/dl Calcium (8.5-10.1) mg/dl POC Ioniz Calcium Lee (1.12-1.32) mmol/l Magnesium (1.8-2.4) mg/dl Total Bilirubin (0.2-1) mg/dl Direct Bilirubin (0-0.2) mg/dl AST (15-37) U/L ALT (12-78) U/L Alkaline Phosphatase (45-117) U/L Total Protein (6.4-8.2) gm/dl Albumin (3.4-5.0) gm/dl Lipase (73-393) U/L Specimen Hemolysis Hepatitis C Ab Screen (Neg) Blood Type Antibody Screen Crossmatch (1) GI bleed GI bleed type/associated pathology: unspecified gastrointestinal hemorrhage type Qualified Code(s): K92.2 - Gastrointestinal hemorrhage, unspecified
[2018-08-10] MEDS ORDERED: fentaNYL citrate 100 MCG/2 ML VIAL ONE ×3 (09:51→11:40)
[2018-08-10] MEDS ORDERED: PROPOFOL IV EMULSION 10 MG/ML 20 ML VIAL IV ONE (09:51)
[2018-08-10] MEDS ORDERED: ONDANSETRON INJ 2 MG/ML 2 ML VIAL ONE (09:51)
[2018-08-10] MEDS ORDERED: LIDOCAINE HCL 2% 2 ML VIAL/AMP(20MG/ML) INFIL ONE (09:51)
--- NOTE | 2018-08-10 10:28 | Anesthesiology Consultation ---
Date of Service August 10, 2018 Assessment & Plan Chart Review Chart Review: Acceptable Risk for Surgery Consults Requested none ASA [id number] Proposed Anesthesia Anesthesia Type: General Risk / Benefits Reviewed With: PT / POA / Parent / Guardian, Accepts Plan and Informed Consent Obtained NPO Date Last Intake of Fluids: 08/09/18 Time Last Intake of Fluids: 22:00 Last Intake of Fluids Comment: sips of water with meds today Date Last Intake of Solids: 08/09/18 Time Last Intake of Solids: 21:00 History Surgery Operation Date: 08/10/18 08:20 Proposed Procedures p Esophagogastroduodenoscopy Dr. Too Gage M.D. Height/Weight Height: 5 ft 7 in Weight: 123.6 kg Allergies Allergy/AdvReac Type Severity Reaction Status Date / Time amoxicillin Allergy Intermediate HIVES Verified 08/10/18 04:12 morphine Allergy Intermediate HALLUCINATI Verified 08/10/18 04:12 ONS oxycodone Allergy Intermediate SEVERE PAIN Verified 08/10/18 04:12 Sulfa (Sulfonamide Allergy Mild RASH Verified 08/10/18 04:12 Antibiotics) codeine AdvReac Intermediate IRRITABLE Verified 08/10/18 04:12 Medications Home Medications Medication Instructions Recorded Confirmed Last Taken acetaminophen [Tylenol Extra 1,000 mg PO Q4 PRN 06/22/18 08/10/18 Unknown Strength] albuterol sulfate [Ventolin HFA] 2 puff INHALATION QID PRN 06/22/18 08/10/18 Unknown ergocalciferol (vitamin D2) 50,000 unit PO 2XWK 06/22/18 08/10/18 08/08/18 [Vitamin D2] furosemide [Lasix] 40 mg PO QAM 06/22/18 08/10/18 08/09/18 gabapentin 200 mg PO TID 06/22/18 08/10/18 08/09/18 hydrocodone-acetaminophen 1 tab PO Q6H PRN #10 tab 06/22/18 08/10/18 Unknown mometasone [Nasonex] 1 spray INTRANASAL DAILY PRN 06/22/18 08/10/18 Unknown multivitamin 1 tab PO QPM 06/22/18 08/10/18 08/09/18 warfarin [Coumadin] 2.5 mg PO 2XWK 06/22/18 08/10/1819 warfarin [Coumadin] 5 mg PO 5XWK 06/22/18 08/10/18 06/20/18 enoxaparin 120 mg SUBCUT BID 08/10/18 08/10/18 08/09/18 polyethylene glycol 3350 [Miralax] 17 g PO DAILY 08/10/18 08/10/18 08/09/18 Active Medications Generic Name Dose Route Start Last Admin Trade Name Freq PRN Reason Stop Dose Admin Furosemide 40 mg 08/10/18 09:00 08/10/18 07:57 Lasix PO 09/09/18 08:59 40 mg QAM GERARDO Administration Gabapentin 200 mg 08/10/18 09:00 08/10/18 07:57 Neurontin PO 09/09/18 08:59 200 mg TID GERARDO Administration Sodium Chloride 1,000 mls @ 100 mls/hr 08/10/18 05:31 08/10/18 06:05 Nss 1000ml IV 09/09/18 05:30 100 mls/hr .Q10H GERARDO Administration Pantoprazole Sodium 40 mg/ 100 mls @ 20 mls/hr 08/10/18 06:00 08/10/18 06:44 Dextrose IV 09/09/18 05:59 20 mls/hr Q5H GERARDO Administration Ondansetron HCl 4 mg 08/10/18 05:31 08/10/18 06:05 Zofran IV 09/09/18 05:30 4 mg Q6H PRN Administration Nausea Past Medical History Medical History Chronic back pain DJD (degenerative joint disease) of knee (Acute) Asthma Blood clotting disorder Morbid obesity Past Family History Family History Other Kidney stone Past Surgical History Surgical History H/O gastric bypass Past Anesthesia History No Hx of Anesthesia Complications and No Family Hx of Anesthesia Complications History of PONV No Motion Sickness Screening History of Motion Sickness: No Social History Smoking Status: Never smoker Do You Dip or Chew Tobacco: No Hx Alcohol Use: Yes Alcohol type: hard liquor alcohol intake frequency: holidays/special occasions only Hx Substance Use: No Exercise / Class Metabolic Activity III < 4 Walking/Shop/Light housework Review of Systems Gastrointestinal: + abdominal pain, + nausea, + vomiting, + coffee ground emesis, + hematemesis, + blood in stools and + melena Physical Exam Vital Signs Last Vital Signs Temp 36.9 C 08/10/18 10:00 Pulse 85 08/10/18 10:00 Resp 18 08/10/18 10:00 BP 104/57 L 08/10/18 10:00 Pulse Ox 100 08/10/18 10:00 Constitutional + morbidly obese ENMT Mouth: no dentition abnormality Thyromental Distance: > or= 3.5 Finger Breadths Mallampati Class: II Neck normal visual inspection and trachea midline; neck extension not limited Respiratory normal respiratory effort Auscultation: lungs clear to auscultation bilaterally Cardiovascular Rate/Rhythm: regular rate and regular rhythm Heart Sounds: no murmur Vessels: no carotid bruit Musculoskeletal Spine: normal cervical ROM Neurologic moves all extremities Motor/Sensory: no sensory deficit Psychiatric Orientation: alert and oriented x 3 Testing Laboratory Results 08/10/18 07:08 08/10/18 07:08 Blood Type A Positive 08/10/18 03:43 Antibody Screen NEGATIVE 08/10/18 03:43 PT 11.4 Seconds (9.0-12.0) 08/10/18 02:34 INR 1.1 (0.9-1.1) 08/10/18 02:34 APTT 29.3 Seconds (21.0-31.0) 08/10/18 02:34 08/10/18 02:48 POC Glucose (other) 125 H
[2018-08-10] MEDS ORDERED: PROMETHAZINE HCL INJ 25 MG/ML 1 ML VIAL ONE (10:34)
[2018-08-10] MEDS ORDERED: METOCLOPRAMIDE HCL INJ 5 MG/ML 2 ML VIAL ONE (11:11)
--- NOTE | 2018-08-10 11:57 | Operative Report ---
Post Operative Report Pre & Post Diagnosis Operation Date: 08/10/18 08:20 Pre-Op Diagnosis: Hematemesis, Gastrointestinal Bleed Post-Op Diagnosis: Hematemesis, Gastrointestinal Bleed secondary to a visible pulsating vessel s/p 2 cc of epi, 3 clips, and cauterization with silver probe Procedure Operation Date: 08/10/18 08:20 Actual Procedures p Esophagogastroduodenoscopy (Not Applicable) - Ginette Gage M.D. Surgeon Ginette Gage Stove Fitter Ivanna Whipple Estimated Blood Loss 500 Findings Consistent with Post-Op Diagnosis Specimens None Description of Procedure 100 mcg neosynephrine was administered prior to the procedure. EGD with findings of a large amount of hematin in the stomach that was suctioned and a large adherent clot in the gastric pouch. 5 cc of Reglan was administered at the request of the GI doctor IV by the COMMUNITY SERVICE PATROL OFFICER to help clear the clot. The small intestinal limb was evaluated and no evidence of active bleed was noted in that limb. 8 cc of epi were then injected 1 cc at a time into the gastric pouch prior to removal of the adherent clot. Post injection, she did have mild self limited tachycardia approximately 7 minutes post injection that then resolved with administering of pain medicaiton by the COMMUNITY SERVICE PATROL OFFICER. The adherent clot was removed piecemeal given the nature of the clot and the inability of the ortiz net to get the entire clot out in one pass. After removal of the adherent clot, there was no active visible vessel seen within the gastric puch. The scope was then advanced from the gastric pouch into the anastomosis and an active pulsating vessel was visualized at the junction of the small intestinal limbs. The pulsating vessel was injected with 2 cc of epinephrine, the placement of 3 clips were placed, and bipolar cautery with the [employer] silver probe (15 flores) with 5-6 pulsations administered. This setting was chosen given it was the small intestine. There was no active bleeding noted at the end of the procedure from the visible vessel, from the small intestinal limbs, from the gastric pouch, or from the esophagus. I attest to the content of the Intraoperative Record and any orders documented therein. Any exceptions are noted below. Supervising Physician Co-Signing Physician Notes She needs to resume her IV PPI. NG placed by COMMUNITY SERVICE PATROL OFFICER post procedure. Return to the ICU after recovery in PACU per anesthesia request.
[2018-08-10] MEDS ORDERED: ONDANSETRON INJ 2 MG/ML 2 ML VIAL IV PRN (12:20)
[2018-08-10] MEDS ORDERED: LABETALOL HCL IV 5 MG/ML 20ML IV PRN (12:20)
[2018-08-10] MEDS ORDERED: ePHEDrine sulfate 50 MG/ML AMP IV PRN (12:20)
[2018-08-10] MEDS ORDERED: fentaNYL citrate 100 MCG/2 ML VIAL IV PRN (12:20)
[2018-08-10] MEDS ORDERED: ATROPINE SULFATE 0.1 MG/ML 10ML SYR IV PRN (12:20)
[2018-08-10] MEDS ORDERED: FLUMAZENIL 0.1 MG/1 ML 10 ML VIAL IV PRN (12:20)
[2018-08-10] MEDS ORDERED: PROMETHAZINE HCL 12.5 MG in SODIUM CHLORIDE 0.9% 50 ML IV PRN (12:20)
[2018-08-10] MEDS ORDERED: NALOXONE HCL 0.4 MG/1 ML VIAL/CARP IV PRN (12:20)
--- NOTE | 2018-08-10 12:27 | GI REPORT ---
Patient Name: Krystle Vergara Procedure Date: 08/10/2018 10:15 AM Date of : 1955 Admit Type: Inpatient Age: 62 Gender: Female Attending MD: Ginette Gage M.d. Procedure: Upper GI endoscopy Providers: Ginette Gage M.d. Referring MD: LUIS MANUEL COMER Indications: Melena Medicines: 100 mcg of Neosynephrine, 5 mg Reglan, Propofol and additional medications per anesthesia record Complications: No immediate complications. Estimated Blood Loss: 500 cc. Procedure: Pre-Anesthesia Assessment: - Patient identification and proposed procedure were verified prior to the procedure by the physician and the nurse. The procedure was verified in the pre-procedure area. - Prior to the procedure, a History and Physical was performed, and patient medications, allergies and sensitivities were reviewed. The patient's tolerance of previous anesthesia was reviewed. - The risks and benefits of the procedure and the sedation options and risks were discussed with the patient. All questions were answered and informed consent was obtained. After obtaining informed consent, the endoscope was passed under direct vision. Throughout the procedure, the patient's blood pressure, pulse, and oxygen saturations were monitored continuously. The Endoscope was introduced through the mouth, and advanced to the jejunum. The upper GI endoscopy was technically difficult and complex due to poor endoscopic visualization. Successful completion of the procedure was aided by withdrawing the scope and replacing with the therapeutic endoscope. The patient tolerated the procedure well. Findings: The examined esophagus appeared normal. Evidence of a gastric bypass was found. A gastric pouch with a normal size was found containing blood (red blood and hematin) and a large adherent clot upon entry into the stomach. This was traversed and the examined small intestine appeared normal. The scope was then switched to a therapeutic scope. Attempts at suctioning of the large adherent clot in the gastric pouch were done with the therapeutic scope and unsuccessful. 8 cc of epinpherine were injected 1 cc at a time into the gastric pouch around the edges of the adherent clot. The clot was then removed piecemeal with a RothNet. Post Ling Net removal of the clot, no active bleeding was noted in the gastric pouch. The scope was then advanced into the g-j anastomosis and a visible vessel was noted to be pulsating (not spurting blood). Two cc of epinephrine were injected into this vessel, 3 clips were placed, and thermal therapy was applied with the [employer] Silver probe (dariana 5-6 applications). There was no active bleeding after this intervention or at the end of the procedure. The examined small intestinal limbs appeared normal post this intervention. Impression: - Normal esophagus. - Gastric bypass with a normal-sized pouch. Adherent clot - removed as per above (using a RothNet). 8 cc of epinephrine injection into the gastric pouch prior to removal of the adherent clot. - Gastrojejunal anastomosis characterized by a visible vessel (not spurting), but pulsating. Treated with 2 cc of epinephrine, placement of 3 clips, and thermal therapy with the [place] Silver probe. - Normal examined small intestine. - No active bleeding noted post intervention or at the end of the procedure. Recommendation: - Continue IV PPI infusion for 72 hours. - Low threshold to transfer to a tertiary referral center. - Would hold anticoagulation at this time. - Trend H/H. Ginette Gage M.D. Ginette Gage M.d. 08/10/2018 12:27:28 PM This report has been signed electronically. Note Initiated On: 08/10/2018 10:15 AM Number of Addenda: 0 I attest to the content of the Intraoperative Record and orders documented therein, exceptions below {[id number]}
[2018-08-10] MEDS ORDERED: HYDROCODONE/ACETAMOPHEN 5/325MG TAB PO PRN (12:31)
--- NOTE | 2018-08-10 12:47 | Anesthesiology Progress Note ---
Date of Service August 10, 2018 Anesthesia Post Procedure Vital Signs Vital Signs: Temp Pulse Pulse Pulse Resp BP BP 08/10/18 12:35 84 21 137/69 08/10/18 12:25 92 H 21 144/86 H 08/10/18 12:15 97 H 20 144/87 H 08/10/18 12:09 36.1 C L 105 H 22 160/95 H 08/10/18 10:00 36.9 C 85 18 104/57 L 08/10/18 08:00 36.8 C 89 88 20 104/67 08/10/18 06:08 08/10/18 05:35 36.6 C 82 17 117/73 08/10/18 05:06 89 20 108/75 08/10/18 04:08 83 18 109/74 08/10/18 03:52 80 16 131/74 08/10/18 02:40 152/88 H 08/10/18 02:24 36.9 C 104 H 22 Pulse Ox Pulse Ox 08/10/18 12:35 97 08/10/18 12:25 100 08/10/18 12:15 100 08/10/18 12:09 95 08/10/18 10:00 100 08/10/18 08:00 96 08/10/18 06:08 98 08/10/18 05:35 98 08/10/18 05:06 97 08/10/18 04:08 97 08/10/18 03:52 97 08/10/18 02:40 08/10/18 02:24 97 Pain Intensity Abdomen: Pain Intensity: 0 Notes Mental Status: alert / awake / arousable Patient Amnestic to Procedure: Yes Nausea / Vomiting: adequately controlled Pain: adequately controlled Airway Patency, RR, SpO2: stable & adequate BP & HR: stable & adequate Hydration State: stable & adequate Anesthetic Complications: no major complications apparent
[2018-08-10 12:55] LABS: Hematocrit (blood only) 30.2 % (37-47); Hemoglobin 10.1 g/dL (12.0-16.0)
[2018-08-10] MEDS ORDERED: ACETAMINOPHEN 500 MG TAB PO PRN (13:13)
[2018-08-10 19:53] LABS: Hematocrit (blood only) 30.2 % (37-47); Hemoglobin 9.8 g/dL (12.0-16.0)
[2018-08-10] MEDS ORDERED: TRAMADOL HCL 50 MG TABLET PO PRN (19:56)
[2018-08-10] MEDS ORDERED: MoRPHine SULFATE 4 MG/ML 1 ML CARP\\VIAL IV PRN (19:56)
[2018-08-10] MEDS ORDERED: CALCIUM CARBONATE 500 MG CHEWABLE TAB PO PRN (19:57)
[2018-08-10] MEDS: MULTIVITAMIN TAB PO SCH (20:29)
--- NOTE | 2018-08-10 20:37 | Communication Note ---
Date of Service: August 10, 2018 Pt was seen and examined. Lying in bed with no distress with daughter at bedside. Pt looks drowsy. She had the EGD few hour ago. Daughter said that she had a dark BM early today. Exam General- No acute distress, obese Head- atraumatic Eyes- PERRL, EOMI, ENT- oropharynx clear, NG tube in place Neck- supple, no JVD Lungs- diminished BS Heart- regular rhythm; no murmur Abdomen- normal bowel sounds, soft, nontender Extremities- no calf tenderness, +edema Neuro- alert, oriented x 3; PERRL, EOMI; no facial palsy; no dysarthria Skin- warm & dry A/P GI bleed Presents with hematemesis, melena and persistent coffee ground emesis Chronic coumadin that is been held for orthopedic surgery, then bridge to Lovenox (received 3 dose) Hgb on admission 12.9, than dropped to 10.1 S/P EGD done by Gastro showed large amount of hematin in the stomach and large adherent clot in the gastric pouch and epinephrine injected with placement of 3 clips Case discussed with GI recommended IV PPI for 72 hr. Monitor H/H If H/H drop significantly and recurrent GI bleed, will transfer to a tertiary care center for eval OK to remove NG tube Will keep NPO for now Hold anticoagulant DVT px on SCDs (Due to GI bleed) Code status Full CODE
[2018-08-11] MEDS: SODIUM CHLORIDE 0.9% 1000ML 1,000 ML IV SCH ×2 (02:48→11:32)
[2018-08-11] MEDS: PANTOprazole 40 MG in DEXTROSE 5% 100 ML IV SCH ×5 (02:48→20:20)
[2018-08-11 06:47] LABS: Basophils # (auto) 0.03 K/uL (0-0.2); Basophils % (auto) 0.5 %; Eosinophils # (auto) 0.11 K/uL (0-0.5); Eosinophils % (auto) 1.9 %; Hematocrit (blood only) 30.9 % (37-47); Hemoglobin 9.9 g/dL (12.0-16.0); Immature Granulocytes # (auto) 0.02 K/uL (0.00-0.02); Immature Granulocytes % (auto) 0.3 %; Lymphocytes # (auto) 1.55 K/uL (1.2-3.4); Mean Corpuscular Volume 94.2 fL (80-100); Mean Platelet Volume 10.1 fL (7.4-10.4); Monocytes # (auto) 0.37 K/uL (0.11-0.59); Monocytes % (auto) 6.4 %; Neutrophils # (auto) 3.66 K/uL (1.4-6.5); Neutrophils % (auto) 63.9 %; Platelet Count 242 K/uL (130-400); RDW Coefficient of Variation 15.6 % (11.5-14.5); RDW Standard Deviation 53.8 fL (36.4-46.3); Red Blood Count 3.28 M/uL (4.2-5.4); White Blood Count 5.74 K/uL (4.8-10.8)
[2018-08-11 07:24] LABS: BUN Creatinine Ratio 29.8 (10-20); Calcium 8.2 mg/dl (8.5-10.1); Creatinine Clr Calc Pharmacy 141.3 ml/min; Est GFR (African American) 116.1; Est GFR (Non-African American) 100.2
[2018-08-11] MEDS: POLYETHYLENE (MIRALAX) 17 GM PACK PO SCH (07:35)
[2018-08-11] MEDS: FUROSEMIDE 40 MG TAB PO SCH (07:35)
[2018-08-11] MEDS: GABAPENTIN 100 MG CAP PO SCH ×3 (07:36→20:21)
--- NOTE | 2018-08-11 09:46 | Gastroenterology Progress Note ---
Date of Service August 11, 2018 Assessment & Plan (1) GI bleed: 62 year old female with history of hypercoaguable state currently on a lovenox bridge, s/p RYGB who presents w/ hematemesis prior to arrival, melena and persistent coffee ground emesis at 0815. She is awake, alert and oriented w/ stable VS, HGB 10. S/P EGD w/ visible vessel s/p injection, cautery and clips. Clinically stable w/ stable BP and HGB - Continue IV PPI for 72 hours - Trend H&H - Monitor and document GI output - Transfuse PRN per protocol - Hold AC - Clear liquids today - Low threshold to transfer pt if any evidence of ongoing GIB or drop in HGB. Thank you for allowing us to participate in the care of this patient. Please call with any acute changes, questions or concerns. Please see addendum below with additional recommendation from my supervising physician. Supervising Physician Co-Signing Physician Notes I have seen and examined the patient and discussed the management with [facility]. Patient now out of ICU holding on 2s. one report of dark bm yesterday evening- this could have been residual. No further bleeding noted. She feels a lot better today. PE - alert and oriented to person, place, time, CV- rrr no mrg, Pulm -CTAB, abd - soft nt nd +bs Labs reviewed- hgb stable. BUN normalized. Tolerating clears, can advance to softs for dinner. Continue IV PPI for 48-72 hours post hemostasis. If clinical deterioration or rebleeding, recommend transfer to a tertiary referral center for potential IR embolization. Subjective Pt was seen and evaluated, chart reviewed. Transferred upstairs. Clinically doing well. No abdominal pain. No nausea, vomiting. Did not move bowels overnight. No lightheadedness, dizziness. No fever, chills, CP, SOB. Review of Systems Constitutional: no fever, no body aches, no weakness and no weight gain Respiratory: no cough, no dyspnea, no pain on inspiration and no wheezing Cardiovascular: no chest pain, no radiating jaw, neck or arm pain, no dyspnea on exertion and no palpitations Gastrointestinal: no abdominal pain, no early satiety, no vomiting, no blood in stools and no melena Physical Exam Constitutional: WD/WN, vitals as above Respiratory: normal respiratory effort, lungs clear to auscultation Cardiovascular: RRR, no murmur, no edema Gastrointestinal (Abdomen): Percussion/Palpation: + abdomen tender and abdomen soft; no guarding, abdomen not rigid and no abdominal mass Skin: no rashes, warm and dry Results & Data Vital Signs (Past 12 Hours) Vital Signs Temp Pulse Resp BP Pulse Ox 08/11/18 06:41 36.8 C 85 18 109/65 95 08/11/18 03:55 36.6 C 85 18 119/79 96 Laboratory Results 08/11/18 08/11/18 08/10/18 Range/Units 06:30 06:30 19:25 WBC 5.74 (4.8-10.8) K/uL RBC 3.28 L (4.2-5.4) M/uL Hgb 9.9 L 9.8 L (12.0-16.0) g/dL Hct 30.9 L 30.2 L (37-47) % MCV 94.2 (80-100) fL MCH 30.2 (25-34) pg MCHC 32.0 (32-36) g/dL RDW Std Deviation 53.8 H (36.4-46.3) fL RDW Coeff of Mary Ellen 15.6 H (11.5-14.5) % Plt Count 242 (130-400) K/uL MPV 10.1 (7.4-10.4) fL Immature Gran % (Auto) 0.3 % Neut % (Auto) 63.9 % Lymph % (Auto) 27.0 % [place] % (Auto) 6.4 % Eos % (Auto) 1.9 % Baso % (Auto) 0.5 % Immature Gran # (Auto) 0.02 (0.00-0.02) K/uL Neut # (Auto) 3.66 (1.4-6.5) K/uL Lymph # (Auto) 1.55 (1.2-3.4) K/uL [place] # (Auto) 0.37 (0.11-0.59) K/uL Eos # (Auto) 0.11 (0-0.5) K/uL Baso # (Auto) 0.03 (0-0.2) K/uL Sodium 146 H (136-145) mmol/L Potassium 4.0 (3.5-5.1) mmol/L Chloride 117 H (98-107) mmol/L Carbon Dioxide 24 (21-32) mmol/L Anion Gap 5.0 (3-11) BUN 17 (7-18) mg/dl Creatinine 0.58 L (0.6-1.2) mg/dl Est Cr Clr Drug Dosing 141.3 ml/min Est GFR ( Amer) 116.1 Est GFR (Non-Af Amer) 100.2 BUN/Creatinine Ratio 29.8 H (10-20) Glucose 95 (70-99) mg/dl Calcium 8.2 L (8.5-10.1) mg/dl 08/10/18 Range/Units 12:40 WBC (4.8-10.8) K/uL RBC (4.2-5.4) M/uL Hgb 10.1 L (12.0-16.0) g/dL Hct 30.2 L (37-47) % MCV (80-100) fL MCH (25-34) pg MCHC (32-36) g/dL RDW Std Deviation (36.4-46.3) fL RDW Coeff of Mary Ellen (11.5-14.5) % Plt Count (130-400) K/uL MPV (7.4-10.4) fL Immature Gran % (Auto) % Neut % (Auto) % Lymph % (Auto) % [place] % (Auto) % Eos % (Auto) % Baso % (Auto) % Immature Gran # (Auto) (0.00-0.02) K/uL Neut # (Auto) (1.4-6.5) K/uL Lymph # (Auto) (1.2-3.4) K/uL [place] # (Auto) (0.11-0.59) K/uL Eos # (Auto) (0-0.5) K/uL Baso # (Auto) (0-0.2) K/uL Sodium (136-145) mmol/L Potassium (3.5-5.1) mmol/L Chloride (98-107) mmol/L Carbon Dioxide (21-32) mmol/L Anion Gap (3-11) BUN (7-18) mg/dl Creatinine (0.6-1.2) mg/dl Est Cr Clr Drug Dosing ml/min Est GFR ( Amer) Est GFR (Non-Af Amer) BUN/Creatinine Ratio (10-20) Glucose (70-99) mg/dl Calcium (8.5-10.1) mg/dl (1) GI bleed GI bleed type/associated pathology: unspecified gastrointestinal hemorrhage type Qualified Code(s): K92.2 - Gastrointestinal hemorrhage, unspecified
[2018-08-11 12:15] LABS: Appearance Urine Clear (Clear); Bacteria Urine Automated 4+ (Negative); Bilirubin Urine Negative (Negative); Blood Urine Negative (Negative); Color Urine Yellow; Glucose Urine UA Negative (Negative); Ketones Urine Negative (Negative); Leukocyte Esterase Urine Trace (Negative); Nitrite Urine Negative (Negative); Protein Urine Negative (Negative); RBC Urine Automated 0-4 /hpf (0-4); Specific Gravity Urine 1.013 (1.000-1.030); Urobilinogen Urine Negative (Negative)
[2018-08-11] MEDS ORDERED: WARFARIN SOD 2.5 MG TAB PO SCH (16:00)
[2018-08-11 18:56] LABS: Hematocrit (blood only) 26.8 % (37-47); Hemoglobin 8.7 g/dL (12.0-16.0)
--- NOTE | 2018-08-11 18:58 | Hospitalist Progress Note ---
Date of Service August 11, 2018 Assessment & Plan (1) GI bleed: Acute blood loss anemia Related to anticoagulant with Lovenox Presents with hematemesis, melena and persistent coffee ground emesis Chronic coumadin that is been held for orthopedic surgery, then bridge to Lovenox (received 3 dose) Hgb on admission 12.9, than dropped to 9.9 today S/P EGD done by Gastro showed large amount of hematin in the stomach and large adherent clot in the gastric pouch and epinephrine injected with placement of 3 clips Case discussed with GI recommended IV PPI for 72 hr. Monitor H/H Repeat H/H this afternoon showed Hgb 8.7 Case discussed with GI convention manager Dr. Gage recommended to monitor H/H q6h If H/H continues to drop and recurrent GI bleed, will transfer to a tertiary care center for eval No plan to repeat EGD Will do type and cross and put 1 unit PRBC on hold. 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 S/P IVC filter. Currently, anticoagulation is held for GI bleed. History of gastric bypass surgery Continue multivitamins and vitamin B12 Hpertension, BP stable Continue monitor the blood pressure DVT px on SCDs (Due to GI bleed) Code status Full CODE Disposition If h/h continues to drop, will transfer to a tertiary care center Subjective Pt was seen and examined Lying in bed with no distress Pt said that she had a dark bowel movement today Denies any chest pain, palpitation, dizziness and SOB Physical Exam Physical Exam: General- No acute distress, obese Head- atraumatic Eyes- PERRL, EOMI, ENT- oropharynx clear, NG tube in place Neck- supple, no JVD Lungs- diminished BS Heart- regular rhythm; no murmur Abdomen- normal bowel sounds, soft, nontender Extremities- no calf tenderness, +edema Neuro- alert, oriented x 3; PERRL, EOMI; no facial palsy; no dysarthria Skin- warm & dry Results & Data Vital Signs (Past 12 Hours) Vital Signs Temp Pulse Pulse Pulse Resp BP Pulse Ox 08/11/18 16:22 36.6 C 89 18 113/74 94 08/11/18 14:55 76 08/11/18 12:36 37.1 C 87 16 102/57 L 97 08/11/18 08:00 90 (1) GI bleed GI bleed type/associated pathology: unspecified gastrointestinal hemorrhage type Qualified Code(s): K92.2 - Gastrointestinal hemorrhage, unspecified
[2018-08-11] MEDS ORDERED: SODIUM CHLORIDE 0.9% 250 ML IV PRN (19:21)
[2018-08-11] MEDS: MULTIVITAMIN TAB PO SCH (20:21)
[2018-08-11] MEDS ORDERED: SIMETHICONE 80 MG CHEW PO ONE (23:21)
[2018-08-12 00:27] LABS: Hematocrit (blood only) 26.8 % (37-47); Hemoglobin 8.7 g/dL (12.0-16.0)
[2018-08-12] MEDS: PANTOprazole 40 MG in DEXTROSE 5% 100 ML IV SCH ×5 (01:22→23:20)
[2018-08-12 06:40] LABS: Basophils # (auto) 0.03 K/uL (0-0.2); Basophils % (auto) 0.7 %; Eosinophils # (auto) 0.26 K/uL (0-0.5); Eosinophils % (auto) 5.9 %; Hematocrit (blood only) 26.4 % (37-47); Hemoglobin 8.7 g/dL (12.0-16.0); Immature Granulocytes # (auto) 0.02 K/uL (0.00-0.02); Immature Granulocytes % (auto) 0.5 %; Lymphocytes # (auto) 1.52 K/uL (1.2-3.4); Lymphocytes % (auto) 34.8 %; Mean Platelet Volume 10.4 fL (7.4-10.4); Monocytes # (auto) 0.36 K/uL (0.11-0.59); Monocytes % (auto) 8.2 %; Neutrophils # (auto) 2.18 K/uL (1.4-6.5); Neutrophils % (auto) 49.9 %; Platelet Count 214 K/uL (130-400); RDW Coefficient of Variation 15.5 % (11.5-14.5); RDW Standard Deviation 52.9 fL (36.4-46.3); Red Blood Count 2.81 M/uL (4.2-5.4); White Blood Count 4.37 K/uL (4.8-10.8)
[2018-08-12 07:20] LABS: Calcium 8.1 mg/dl (8.5-10.1); Creatinine Clr Calc Pharmacy 139.8 ml/min; Est GFR (African American) 115.5; Est GFR (Non-African American) 99.6; Potassium 3.5 mmol/L (3.5-5.1)
[2018-08-12] MEDS: GABAPENTIN 100 MG CAP PO SCH ×3 (07:59→20:45)
[2018-08-12] MEDS: FUROSEMIDE 40 MG TAB PO SCH (07:59)
[2018-08-12] MEDS: POLYETHYLENE (MIRALAX) 17 GM PACK PO SCH ×2 (08:03→22:22)
[2018-08-12] MEDS ORDERED: ERGOCALCIFEROL 50,000 UNITS CAP PO SCH (09:00)
[2018-08-12] MEDS ORDERED: ALUMINUM/MAGNESIUM/SIMETH (MAALOX MAX) 30 ML UDC PO STA (09:12)
--- NOTE | 2018-08-12 09:43 | History & Physical Bridge Note ---
Date of Service August 12, 2018 History & Physical Bridge Note GI short note: Chart reviewed. Pt w hx of RYGB, on Lovenox admitted for coffee ground emesis and melena. Had EGD on 08/10w/ visible vessel s/p injection, cautery and clips. Clinically stable w/ stable BP and HGB. No further signs of melena or rectal bleeding per RN. Pt tolerating solid diet well. GI to sign off. If pt has recurrence of GI bleeding, would recommend transfer to tertiary care center for management.
[2018-08-12] MEDS: cefTRIAXone SODIUM 1,000 MG in DEXTROSE 5% 50 ML IV SCH (09:52)
[2018-08-12] MEDS ORDERED: Nursing to Pharmacy Communication ONE (12:05)
[2018-08-12] MEDS ORDERED: SIMETHICONE 80 MG CHEW PO PRN (12:09)
[2018-08-12] MEDS ORDERED: POTASSIUM CHLORIDE 10 MEQ TABCR PO ONE (12:15)
--- NOTE | 2018-08-12 12:38 | Hospitalist Progress Note ---
Date of Service August 12, 2018 Assessment & Plan (1) GI bleed: Acute blood loss anemia Related to anticoagulant with Lovenox Presents with hematemesis, melena and persistent coffee ground emesis Chronic coumadin that is been held for orthopedic surgery, then bridge to Lovenox (received 3 dose) Hgb on admission 12.9, than dropped to 9.9 today S/P EGD done by Gastro showed large amount of hematin in the stomach and large adherent clot in the gastric pouch and epinephrine injected with placement of 3 clips Case discussed with GI recommended IV PPI for 72 hr. Monitor H/H Repeat H/H this afternoon showed Hgb 8.7 Case discussed with GI conservation policy analyst Dr. Gage recommended to monitor H/H q6h If H/H continues to drop and recurrent GI bleed, will transfer to a tertiary care center for eval No plan to repeat EGD Will do type and cross and put 1 unit PRBC on hold. Please transfuse if H/H drops below 8 Hold anticoagulant 08/12 S/P EGD on 08/10 done by Gastro showed large amount of hematin in the stomach and large adherent clot in the gastric pouch and epinephrine injected with placement of 3 clips Hgb has been stable at 8.7 No BM since yesterday Continue monitor h/h and transfuse if H/H drops below 8 If H/H continues to drop and recurrent GI bleed, will need to transfer to a tertiary care center for eval Hold anticoagulant for now tolerated diet Continue PPI GI on board Syncope Mostly due to vasovagal No arrhythmia on tele monitor Continue monitor resolved UTI Hx Recurrent UTI Complaint of increasing urinary frequency and strong oder urine Urine cx positive for gram negative bacilli Starting on Rocephin 1g IV Follow sensitivity to de-escalate abx Hx deep venous thrombosis and pulmonary embolism Hx of hypercoagulopathy Happened while on high dose of Depo-Provera. S/P IVC filter. Currently anticoagulation held for GI bleed. History of gastric bypass surgery Continue multivitamins and vitamin B12 Hypertension, BP stable Continue monitor the blood pressure DVT px on SCDs (Due to GI bleed) Code status Full CODE Disposition If h/h continues to drop, will transfer to a tertiary care center Possible discharge tomorrow if hgb stable Subjective Pt was seen and examined Lying in bed with no distress with daughter and at bedside Pt said that she feels much better She said that she walks around the hallway with no distress Last dark bloody bowel movement was yesterday and has not had any BM since Her hgb has been stable at 8.7 She denies any chest pain, palpitation, dizziness and SOB Physical Exam Physical Exam: General- No acute distress, obese Head- atraumatic Eyes- PERRL, EOMI, ENT- oropharynx clear, NG tube in place Neck- supple, no JVD Lungs- diminished BS Heart- regular rhythm; no murmur Abdomen- normal bowel sounds, soft, nontender Extremities- no calf tenderness, +trace edema Neuro- alert, oriented x 3; PERRL, EOMI; no facial palsy; no dysarthria Skin- warm & dry Results & Data Vital Signs (Past 12 Hours) Vital Signs Temp Pulse Pulse Resp BP Pulse Ox 08/12/18 11:33 36.7 C 67 16 112/68 91 08/12/18 08:00 70 08/12/18 07:14 36.5 C 73 18 102/68 95 08/12/18 04:37 36.6 C 76 18 106/68 93 (1) GI bleed GI bleed type/associated pathology: unspecified gastrointestinal hemorrhage type Qualified Code(s): K92.2 - Gastrointestinal hemorrhage, unspecified
[2018-08-12 18:08] LABS: Hematocrit (blood only) 26.3 % (37-47); Hemoglobin 8.6 g/dL (12.0-16.0)
[2018-08-12] MEDS: MULTIVITAMIN TAB PO SCH (20:45)
[2018-08-12] MEDS ORDERED: POLYETHYLENE (MIRALAX) 17 GM PACK ONE (22:19)
[2018-08-13] MEDS: PANTOprazole 40 MG in DEXTROSE 5% 100 ML IV SCH ×2 (04:21→11:41)
[2018-08-13 06:41] LABS: Basophils # (auto) 0.03 K/uL (0-0.2); Basophils % (auto) 0.7 %; Eosinophils # (auto) 0.27 K/uL (0-0.5); Eosinophils % (auto) 5.9 %; Hemoglobin 7.8 g/dL (12.0-16.0); Immature Granulocytes # (auto) 0.01 K/uL (0.00-0.02); Immature Granulocytes % (auto) 0.2 %; Lymphocytes # (auto) 1.21 K/uL (1.2-3.4); Lymphocytes % (auto) 26.6 %; Mean Corpuscular Hgb Conc 32.5 g/dL (32-36); Mean Corpuscular Volume 94.5 fL (80-100); Mean Platelet Volume 10.6 fL (7.4-10.4); Monocytes # (auto) 0.41 K/uL (0.11-0.59); Neutrophils # (auto) 2.62 K/uL (1.4-6.5); Neutrophils % (auto) 57.6 %; Platelet Count 225 K/uL (130-400); RDW Coefficient of Variation 15.6 % (11.5-14.5); RDW Standard Deviation 52.3 fL (36.4-46.3); Red Blood Count 2.54 M/uL (4.2-5.4); White Blood Count 4.55 K/uL (4.8-10.8)
[2018-08-13 07:13] LABS: RBC Morphology Unremarkable
[2018-08-13 07:14] LABS: BUN Creatinine Ratio 12.7 (10-20); Calcium 8.5 mg/dl (8.5-10.1); Creatinine Clr Calc Pharmacy 144.7 ml/min; Est GFR (African American) 116.8; Est GFR (Non-African American) 100.8; Potassium 3.5 mmol/L (3.5-5.1)
[2018-08-13] MEDS ORDERED: SODIUM CHLORIDE 0.9% 250 ML IV PRN (07:53)
--- NOTE | 2018-08-13 08:35 | Hospitalist Progress Note ---
Date of Service August 13, 2018 Assessment & Plan (1) GI bleed: Presented with hematemesis and melena. EGD demonstrated clot in gastric pouch with underlying pulsating vessel (without active bleeding). Vessel was injected with epi, clipped, and cauterized. Hgb drifted down from 12.9 on admission to 7.8 this morning. No signs of recurrent bleeding at time of initial assessment. Hemodynamically stable. Not orthostatic. Repeat Hgb this morning was 8.9. Patient requested that another H/H be checked before discharge. Later in the morning she passed some stool with blood. Vital signs remained stable. Uncertain if blood noted today residual from bleed a few days ago or could be bleeding from internal hemorrhoids or diverticulosis (noted on recent colonoscopy). Repeat Hgb 8.4 this afternoon. Doubt significant acute GI bleeding at this time, but will monitor overnight and recheck H/H in a.m. Unable to take oral Fe. IV Fe sucrose ordered. Transition from pantoprazole infusion to oral dosing BID. 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 Was on hormonal control at the time. Took warfarin for years, then stopped it for several years. Subsequently seen in consultation by Hematology in 2009. Tested for hypercoagulable conditions and found to be heterozygous for prothrombin gene mutation. Long-term anticoagulation recommended and warfarin resumed. Was receiving bridge therapy with enoxaparin for anticipated hip surgery. Anticoagulants on hold due to UGI bleed. Should be OK to resume warfarin in a few days if no further bleeding. Consider holding warfarin for future procedures without enoxaparin bridging since risk of bleeding may exceed risk of short-term VTE. (3) Osteoarthritis of hip: Hip surgery will need to be postponed due to UGI bleed. Can be rescheduled once f/u EGD performed. (4) DVT prophylaxis: No anticoagulants due to GI bleed. SCD's. Ambulate. (5) Discharge planning issues: Anticipated discharge to home. Family Medicine follow-up with Dr. Wilcox. Subjective Recheck for GI bleed and other problems. Patient seen in her room around 0745. Her daughter is visiting. Feels well. No nausea, vomiting, melena, hematochezia. Last bowel movement was . Minimal lightheadedness when standing. No fever. No cough or SOB. No chest pain. Review of systems as noted above. Physical Exam Constitutional: no acute distress Respiratory: no respiratory distress Auscultation: lungs clear to auscultation bilaterally Cardiovascular: Rate/Rhythm: regular rate and regular rhythm Vessels: no JVD Extremities: no calf tenderness and no edema Gastrointestinal (Abdomen): normal bowel sounds, soft, nontender, no hepatosplenomegaly Skin: no rashes, warm and dry Psychiatric: Orientation: alert and oriented x 3 Results & Data Vital Signs (Past 12 Hours) Vital Signs Temp Pulse Pulse Pulse Resp BP BP 08/13/18 07:26 36.5 C 80 18 113/78 08/13/18 02:50 36.6 C 70 16 104/71 08/12/18 23:08 83 08/12/18 23:03 36.5 C 86 16 123/81 Pulse Ox 08/13/18 07:26 96 08/13/18 02:50 94 08/12/18 23:08 08/12/18 23:03 96 Laboratory Results Laboratory Results - last 24 hr 08/10/18 08/12/18 08/13/18 03:43 17:53 06:05 WBC 4.55 L RBC 2.54 L Hgb 8.6 L 7.8 L Hct 26.3 L 24.0 L MCV 94.5 MCH 30.7 MCHC 32.5 RDW Std Deviation 52.3 H RDW Coeff of Mary Ellen 15.6 H Plt Count 225 MPV 10.6 H Immature Gran % (Auto) 0.2 Neut % (Auto) 57.6 Lymph % (Auto) 26.6 [place] % (Auto) 9.0 Eos % (Auto) 5.9 Baso % (Auto) 0.7 Immature Gran # (Auto) 0.01 Neut # (Auto) 2.62 Lymph # (Auto) 1.21 [place] # (Auto) 0.41 Eos # (Auto) 0.27 Baso # (Auto) 0.03 RBC Morphology Unremarkable Sodium Potassium Chloride Carbon Dioxide Anion Gap BUN Creatinine Est Cr Clr Drug Dosing Est GFR ( Amer) Est GFR (Non-Af Amer) BUN/Creatinine Ratio Glucose Calcium Blood Type Antibody Screen Crossmatch See Detail 08/13/18 08/13/18 08/13/18 06:05 08:02 08:02 WBC RBC Hgb 8.9 L Hct MCV MCH MCHC RDW Std Deviation RDW Coeff of Mary Ellen Plt Count MPV Immature Gran % (Auto) Neut % (Auto) Lymph % (Auto) [place] % (Auto) Eos % (Auto) Baso % (Auto) Immature Gran # (Auto) Neut # (Auto) Lymph # (Auto) [place] # (Auto) Eos # (Auto) Baso # (Auto) RBC Morphology Sodium 144 Potassium 3.5 Chloride 110 H Carbon Dioxide 29 Anion Gap 5.0 BUN 7 Creatinine 0.57 L Est Cr Clr Drug Dosing 144.7 Est GFR ( Amer) 116.8 Est GFR (Non-Af Amer) 100.8 BUN/Creatinine Ratio 12.7 Glucose 83 Calcium 8.5 Blood Type A Positive Antibody Screen NEGATIVE Crossmatch See Detail 08/13/18 12:49 WBC RBC Hgb 8.4 L Hct MCV MCH MCHC RDW Std Deviation RDW Coeff of Mary Ellen Plt Count MPV Immature Gran % (Auto) Neut % (Auto) Lymph % (Auto) [place] % (Auto) Eos % (Auto) Baso % (Auto) Immature Gran # (Auto) Neut # (Auto) Lymph # (Auto) [place] # (Auto) Eos # (Auto) Baso # (Auto) RBC Morphology Sodium Potassium Chloride Carbon Dioxide Anion Gap BUN Creatinine Est Cr Clr Drug Dosing Est GFR ( Amer) Est GFR (Non-Af Amer) BUN/Creatinine Ratio Glucose Calcium Blood Type Antibody Screen Crossmatch (1) GI bleed GI bleed type/associated pathology: unspecified gastrointestinal hemorrhage type Qualified Code(s): K92.2 - Gastrointestinal hemorrhage, unspecified
--- NOTE | 2018-08-13 08:43 | Gastroenterology Progress Note ---
Date of Service August 13, 2018 Supervising Physician Co-Signing Physician Notes 62 yo fm with a history of rygb, s/p EGD with triple therapy to a visible vessel at the g-j junction (it was treated with epi/cautery/3 clips. She has had one bowel movement the day after the procedure that was dark (this could have been residual), her hgb has essentially remained stable at 8.5 post procedure. Would allow PPI drip to complete. Could consider dc home later today. Details for discharge planning discussed with Dr. Denson this morning. Subjective No acute complaints Ate a lot she said yesterday No bowel movements since the small one that was dark on afternoon after she had had her endoscopy Able to get up and out of bed Daugther at bedisde Review of Systems Review of Systems: All systems reviewed & are unremarkable except as noted in HPI & below Physical Exam Physical Exam: No acute distress Eyes: PERRL, conjunctivae normal, anicteric sclerae Musculoskeletal: OOB and walking Skin: No rashes Neurologic: CN's II-XI intact bilaterally Results & Data Vital Signs (Past 12 Hours) Vital Signs Temp Pulse Pulse Pulse Resp BP BP 08/13/18 07:26 36.5 C 80 18 113/78 08/13/18 02:50 36.6 C 70 16 104/71 08/12/18 23:08 83 08/12/18 23:03 36.5 C 86 16 123/81 Pulse Ox 08/13/18 07:26 96 08/13/18 02:50 94 08/12/18 23:08 08/12/18 23:03 96 Laboratory Results Lab showed a slight drop in hgb though repeat check shows it to be stable BUN continues to be normal
[2018-08-13] MEDS: GABAPENTIN 100 MG CAP PO SCH ×3 (09:18→20:28)
[2018-08-13] MEDS: POLYETHYLENE (MIRALAX) 17 GM PACK PO SCH ×2 (09:18→20:29)
[2018-08-13] MEDS: FUROSEMIDE 40 MG TAB PO SCH (09:18)
[2018-08-13] MEDS: cefTRIAXone SODIUM 1,000 MG in DEXTROSE 5% 50 ML IV SCH (10:19)
[2018-08-13] MEDS ORDERED: IRON SUCROSE 200 MG in 0.9 % SODIUM CHLORIDE 100 ML IV ONE (11:00)
[2018-08-13] MEDS: MULTIVITAMIN TAB PO SCH (20:29)
[2018-08-13] MEDS: PANTOprazole 40 MG TAB PO SCH (21:06)
[2018-08-14 06:17] LABS: Hematocrit (blood only) 24.9 % (37-47)
[2018-08-14] MEDS: POLYETHYLENE (MIRALAX) 17 GM PACK PO SCH (08:23)
[2018-08-14] MEDS: PANTOprazole 40 MG TAB PO SCH (08:23)
[2018-08-14] MEDS: GABAPENTIN 100 MG CAP PO SCH (08:23)
[2018-08-14] MEDS: FUROSEMIDE 40 MG TAB PO SCH (08:23)
[2018-08-14] MEDS: cefTRIAXone SODIUM 1,000 MG in DEXTROSE 5% 50 ML IV SCH (10:23)
--- NOTE | 2018-08-14 14:04 | Hospitalist Progress Note ---
Date of Service August 14, 2018 Results & Data Vital Signs (Past 12 Hours) Vital Signs Temp Pulse Pulse Pulse Resp BP Pulse Ox 08/14/18 10:55 36.5 C 80 18 100/66 93 08/14/18 09:10 72 08/14/18 07:41 72 08/14/18 07:07 36.5 C 85 16 107/73 98 08/14/18 03:15 36.7 C 83 16 95/63 L 95
--- NOTE | 2018-08-14 21:56 | Hospitalist Progress Note ---
Date of Service August 14, 2018 Assessment & Plan (1) GI bleed: Presented with hematemesis and melena. EGD demonstrated clot in gastric pouch with underlying pulsating vessel (without active bleeding). Vessel was injected with epi, clipped, and cauterized. Hgb drifted down from 12.9 on admission to 7.8 on 08/13. Hemodynamically stable. Not orthostatic. Later in the morning of 08/13 she passed some stool with blood (? old blood). Vital signs remained stable. Repeat Hgb 8.0 this morning. No further signs of gross GI bleeding. Unable to take oral Fe. Received a dose of IV Fe sucrose; may need additional dosing as outpatient. Transitioned from pantoprazole infusion to oral dosing BID. To be scheduled for f/u EGD. Recheck H/H and Fe level in clinic. 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 Was on hormonal control at the time. Took warfarin for years, then stopped it for several years. Subsequently seen in consultation by Hematology in 2009. Tested for hypercoagulable conditions and found to be heterozygous for prothrombin gene mutation. Long-term anticoagulation recommended and warfarin resumed. Was receiving bridge therapy with enoxaparin for anticipated hip surgery. Anticoagulants on hold due to UGI bleed. Should be OK to resume warfarin in a few days if no further bleeding. Consider holding warfarin for future procedures without enoxaparin bridging since risk of bleeding may exceed risk of short-term VTE. (3) Osteoarthritis of hip: Hip surgery will need to be postponed due to UGI bleed. Can be rescheduled once f/u EGD performed. (4) Bacteriuria: UA at time of admission demonstrated trace leukocyte esterase, 5-10 WBC's, 4+ bacteria. Urine culture grew Klebsiella pneumoniae and E coli. No fever, leukocytosis, dysuria, flank pain. Suspect asymptomatic bacteruria. Received IV ceftriaxone x 3 doses. No need for additional antibiotic therapy at this time. Anticipated LONG in near future. May be prudent to recheck UA and urine culture prior to procedure and treat if necessary. (5) DVT prophylaxis: No anticoagulants due to GI bleed. SCD's. Ambulate. (6) Discharge planning issues: Discharge to home. Family Medicine follow-up with Dr. Brenden. Subjective Recheck for GI bleed and other problems. Patient seen in her room around 1400. visiting. Feels well. No nausea, vomiting, melena, hematochezia. No fever. No cough or SOB. No chest pain. No dysuria or hematuria. Review of systems as noted above. Physical Exam Constitutional: no acute distress Respiratory: no respiratory distress Auscultation: lungs clear to auscultation bilaterally Cardiovascular: Rate/Rhythm: regular rate and regular rhythm Heart Sounds: no gallop, no murmur and no cardiac rub Vessels: no JVD Extremities: no calf tenderness and no edema Gastrointestinal (Abdomen): normal bowel sounds, soft, nontender, no hepatosplenomegaly Skin: no rashes, warm and dry Psychiatric: Orientation: alert and oriented x 3 Results & Data Vital Signs (Past 12 Hours) Vital Signs Temp Pulse Pulse Resp BP Pulse Ox 08/14/18 14:26 36.5 C 85 80 18 100/66 93 08/14/18 10:55 36.5 C 80 18 100/66 93 Laboratory Results Laboratory Results - last 24 hr 08/14/18 05:35 Hgb 8.0 L Hct 24.9 L (1) GI bleed GI bleed type/associated pathology: unspecified gastrointestinal hemorrhage type Qualified Code(s): K92.2 - Gastrointestinal hemorrhage, unspecified
--- NOTE | 2018-08-14 22:02 | Discharge Summary ---
Date of Service Date of Admission: 08/10/18 Date of Discharge: 08/14/18 Admission HPI Per Admitting Provider This is a 62-year-old female with past medical history significant for allergic asthma, allergic rhinitis, recurrent sinus infections, exercise-induced bronchospasm, hypertension, status post gastric bypass about 11 years ago, vitamin B12 deficiency, rectocele, irritable bowel syndrome, rosacea, primary hypercoagulable state, prothrombin [id number] mutation, iron deficiency anemia, history of pulmonary embolism and history of DVT in 1998 and status post IVC filter at that time, pulmonary embolus and DVT thought to be secondary to high dose of Depo-Provera and also because of history of hypercoagulable state. The patient had severe osteoarthritis of the right hip and plan for surgery coming Wednesday and Coumadin was stopped and she was placed on Lovenox bridge. She took couple of Lovenox doses 120 mg twice daily and today around 1:00am today, she started having bloody vomitus, several episodes and she also vomited in the parking place and also in the ER and she is also having bloody and black stools and she has feeling of stomach bloating and uncomfortable. In the ER room she was sitting on the chair, the patient suddenly blacked out and passed out for a couple of seconds. Currently, she is back in the bed and hemodynamically stable. Denies any headache, no blurred visions, no earache, no blurriness, no sore throat, no difficulty swallowing. Appetite is otherwise okay. No chest pain. Just feels her abdomen is bloated and feels some burning sensation in the chest. No shortness of breath, no cough, no fever, no chills. Normal bladder movements. No bloody micturition. Has chronic swelling in the lower extremities which is the same, no change. Ambulates with help of cane. Lives with her . Admission Exam Per Admitting Provider GENERAL: The patient is morbidly obese, not in acute distress. VITAL SIGNS: Temperature 36.9, pulse 83, respiratory rate 18, blood pressure 109/74, oxygen 97% room air. HEENT: No pallor, no icterus. Pupils equal, round, and reactive. NECK: No JVD, no neck masses, no carotid bruits. CARDIOVASCULAR: S1, S2 heard, regular rate and rhythm, no murmur, no gallop. RESPIRATORY SYSTEM: Normal AP diameter. No accessory muscle use. No wheezing, no crackles. ABDOMEN: Soft, bowel sounds present. Diffuse abdominal discomfort. No guarding, no rigidity. CENTRAL NERVOUS SYSTEM: Cranial nerves II-XII grossly intact. Nonfocal. EXTREMITIES: Lower extremity edema present. No erythema seen. Principal Diagnosis upper GI bleed acute blood loss anemia Discharge Data Allergies Allergy/AdvReac Type Severity Reaction Status Date / Time amoxicillin Allergy Intermediate HIVES Verified 08/10/18 04:12 morphine Allergy Intermediate HALLUCINATI Verified 08/10/18 04:12 ONS oxycodone Allergy Intermediate SEVERE PAIN Verified 08/10/18 04:12 Sulfa (Sulfonamide Allergy Mild RASH Verified 08/10/18 04:12 Antibiotics) codeine AdvReac Intermediate IRRITABLE Verified 08/10/18 04:12 Consultations 08/10/18 03:44 ED Decision to Admit Stat 08/10/18 04:20 Consult Gastroenterology Routine 08/10/18 08:00 Consult Gastroenterology Routine Procedures Performed Operation Date: 08/10/18 08:20 Actual Procedures p Esophagogastroduodenoscopy(Not Applicable) - Ginette Gage M.D. Hospital Course (1) GI bleed: Presented with hematemesis and melena. EGD demonstrated clot in gastric pouch with underlying pulsating vessel (without active bleeding). Vessel was injected with epi, clipped, and cauterized. Hgb drifted down from 12.9 on admission to 7.8 on 08/13. Hemodynamically stable. Not orthostatic. Later in the morning of 08/13 she passed some stool with blood (? old blood). Vital signs remained stable. Repeat Hgb 8.0 morning of discharge. No further signs of gross GI bleeding. Transitioned from pantoprazole infusion to oral dosing BID. To be scheduled for f/u EGD. (2) Acute blood loss anemia: Hgb 12.9 --> --> 8.0. Acute blood loss anemia secondary to GI bleed as noted above. No indication for transfusion per guidelines. Unable to take oral Fe. Received a dose of IV Fe sucrose; may need additional dosing as outpatient. Recheck H/H and Fe level in clinic. (3) History of pulmonary embolism: History of DVT x 2, pulmonary embolism associated with the second occurrence in 1998. Was on hormonal control at the time. Took warfarin for years, then stopped it for several years. Subsequently seen in consultation by Hematology in 2009. Tested for hypercoagulable conditions and found to be heterozygous for prothrombin gene mutation. Long-term anticoagulation recommended and warfarin resumed. Was receiving bridge therapy with enoxaparin for anticipated hip surgery. Anticoagulants on hold due to UGI bleed. Should be OK to resume warfarin in a few days if no further bleeding. Consider holding warfarin for future procedures without enoxaparin bridging si nce risk of bleeding may exceed risk of short-term VTE. (4) Osteoarthritis of hip: Hip surgery will need to be postponed due to UGI bleed. Can be rescheduled once f/u EGD performed. (5) Bacteriuria: UA at time of admission demonstrated trace leukocyte esterase, 5-10 WBC's, 4+ bacteria. Urine culture grew Klebsiella pneumoniae and E coli. No fever, leukocytosis, dysuria, flank pain. Suspect asymptomatic bacteruria. Received IV ceftriaxone x 3 doses. No need for additional antibiotic therapy at this time. Anticipated LONG in near future. May be prudent to recheck UA and urine culture prior to procedure and treat if necessary. (6) DVT prophylaxis: No anticoagulants due to GI bleed. SCD's. Ambulate. (7) Discharge planning issues: Discharge to home. Family Medicine follow-up with Dr. Wilcox. Total Time Total Time Spent Total Time Spent (In Minutes): 45 Discharge Plan Discharge Items Patient Disposition: Home - Self-Care Reason For Visit: gastrointestinal bleeding Discharge Diagnosis: bleeding from blood vessel in stomach Condition: Good Discharge Goals: Decrease discomfort and Improve disease control Activity: As commented below Activity Comment: gradually increase activity as tolerated Non-emergency contact: Primary Care Provider and Hospitalist Call non-emergency contact if: you have any medication questions and your symptoms worsen Follow-up/Referrals: Ethan Wilcox MD [Primary Care Provider] - (08/17/2018 11:00 AM Miranda Epperson MD (covering for Dr. Wilcox) Internal Medicine [facility] ) Diet: Heart Healthy, Low Fiber and See below Diet Comment: low fiber diet for 2 weeks, then high fiber Addtl Provider Instructions: Please ask Dr. Colin to check your blood count and iron levels when you see her in clinic. Stop taking enoxaparin (Lovenox). Hold warfarin (Coumadin) until Tuesday 08/15. OK to resume at that time if no further signs of bleeding. Increase omeprazole (Prilosec) to 40 mg twice a day. New prescription sent to [facility]. A repeat scope (EGD) will be scheduled. You should be contacted with the appointment and instructions. Your hip surgery should be postponed until repeat EGD is done and blood count has recovered. Seek medical attention if you have: * temperature above 101 * chest pain or trouble breathing * abdominal pain, nausea, vomiting * diarrhea, dark stools or bloody stools * bladder discomfort, burning when you urinate, blood in urine, pain in back / flank * any unanswered questions or concerns Call [phone] if symptoms are severe. Call if you have any questions or problems. My cell # is [phone]. You can also reach a [facility] hospitalist on duty at [facility] 24 hours a day by calling [phone]. Prescriptions: New omeprazole 40 mg capsule,delayed release(DR/EC) 40 mg PO BID Qty: 60 RF: 5 Continued polyethylene glycol 3350 [Miralax] 17 gram/dose Powder 17 g PO DAILY RF: 0 multivitamin Tablet 1 tab PO QPM RF: 0 furosemide [Lasix] 40 mg Tablet 40 mg PO QAM RF: 0 acetaminophen [Tylenol Extra Strength] 500 mg Tablet 1,000 mg PO Q4 PRN (Reason: Pain) RF: 0 warfarin [Coumadin] 5 mg Tablet 5 mg PO 5XWK RF: 0 warfarin [Coumadin] 5 mg Tablet 2.5 mg PO 2XWK RF: 0 mometasone [Nasonex] 50 mcg/actuation [place],Non-Aerosol 1 spray INTRANASAL DAILY PRN (Reason: Congestion) RF: 0 gabapentin 100 mg Capsule 200 mg PO TID RF: 0 ergocalciferol (vitamin D2) [Vitamin D2] 50,000 unit Capsule 50,000 unit PO 2XWK RF: 0 albuterol sulfate [Ventolin HFA] 90 mcg/actuation Hfa Aerosol Inhaler 2 puff INHALATION QID PRN (Reason: Shortness Of Breath Or Wheezing) RF: 0 hydrocodone-acetaminophen 5-325 mg tablet 1 tab PO Q6H PRN (Reason: pain) Qty: 10 RF: 0 Discontinued enoxaparin 120 mg/0.8 mL syringe 120 mg subcut BID RF: 0 omeprazole 40 mg Capsule,Delayed Release(Dr/Ec) 40 mg PO DAILY RF: 0 Stand-Alone Forms: Work/School Release (ED), [facility] Discharge Orders: Discharge Order (Routine); Ordered 08/14/18 Ordered By: Ric Denson Admission Data Admit Date/Time: 08/10/18 04:43 Attending Provider: Ric Denson Admit Provider: Shad Calderon Primary Care Provider: Ethan Wilcox Other Providers: Ginette Gage ; Shad Calderon ; Elin Mcelroy ; Ernesto Ramirez ; Mabel Burk ; Burke Dent ; Kika Mcgill ; Concha Victoria ; Micaela Wade ; Tarun Redd ; Jovanny Wilkes ; Letty Leija ; Kimber Craven ; Andreea Anderson ; Sonya Stanford ; Venu Myers Service: Telemetry Other Interventions: Discharge Summary Assessment (RN) Last Done: 08/14/18 14:26 DC Date/Time DO NOT enter until pt leaves facility: 08/14/18 15:22
== END 2018-08-14 15:22 | disposition home or self-care (01) | DRG 813 ==
LOC: ED 02:14 → 1E 04:43 → SUATTDRO 04:43 → 1E 05:06 → 2S 22:29

== ENCOUNTER 2025-03-20 17:04 | Observation (INO) ==
[2025-03-20] MEDS: ONDANSETRON INJ 2 MG/ML 2 ML VIAL IV STA (17:16)
[2025-03-20] MEDS: SODIUM CHLORIDE 0.9% 500 ML IV STA (17:20)
--- NOTE | 2025-03-20 17:22 | Emergency Department Note ---
Impression & Plan Acute right flank pain, Intractable abdominal pain ED Provider Note NAME: LUCAS NAJERA AGE: 69 SEX: F : 1955 ARRIVES VIA: Ambulance INFORMANT: Patient, EMS ED PROVIDER(S): Tarnu Castrejon DO CHIEF COMPLAINT: Flank pain HPI: The patient is a 69-year-old female who presented to the emergency department for flank pain. The patient states that she was noticing UTI symptoms over the course of the last few days. She was seen by her primary care physician. She did have an ultrasound of her kidneys. She has a history of kidney stones in the past. She was started on an antibiotic for presumed urinary tract infection. The patient had severe return of pain this evening. She states she has severe right flank pain that goes to her right groin. She has had nausea but no vomiting. She denies having any black or tarry stools. She does take blood thinners because of a history of hypercoagulable disease. ROS: See above HPI for pertinent positives & negatives. A total of 10 systems reviewed and were otherwise negative. PAST MEDICAL HISTORY: See Below PAST SURGICAL HISTORY: See Below FAMILY HISTORY: See Below SOCIAL HISTORY: See Below HOME MEDICATIONS: See Below ALLERGIES: See Below VITALS: See Below PHYSICAL EXAMINATION: GENERAL: The patient is awake and alert. The patient is very anxious and appears to be uncomfortable. EYES: The conjunctivae are clear. The pupils are round and reactive. EARS, NOSE, MOUTH AND THROAT: The nose is without any evidence of any deformity. NECK: The neck is nontender and supple. RESPIRATORY: Normal respiratory effort is noted there is no evidence of wheezing rhonchi or rales CARDIOVASCULAR: Regular rate and rhythm noted there no murmurs rubs or gallops normal S1 normal S2. GASTROINTESTINAL: The abdomen was distended. There is right sided tenderness to palpation but no specific guarding or rigidity. BACK: Right CVA tenderness was noted to percussion. Range of motion appears intact. MUSCULOSKELETAL/EXTREMITIES: There is no evidence of gross deformity full range of motion is noted in the hips and shoulders. SKIN: There is no obvious evidence of any rash. There are no petechiae, pallor or cyanosis noted. NEUROLOGIC: Patient is awake alert and oriented x3. MEDICAL DECISION MAKING: The patient is a 69-year-old female who presented to the emergency department for evaluation of right flank pain. The patient was diagnosed with a urine infection recently. She had returned of pain which was severe. She arrived via ambulance. She received pain medicine prior to arrival as well as in the emergency department. She was reevaluated multiple times. She did not have very significant pain relief. Given her lack of pain relief I did discuss her condition with the on-call [facility] [address] [facility] hospitalist. They have agreed to evaluate the patient in the emergency department for further management and disposition. I did discuss the patient's laboratory and radiographic studies with her. Triage Nursing notes reviewed. Prior medical records reviewed Vital Signs: reviewed and remarkable for no significant abnormalities Differential diagnosis: Renal colic, UTI, appendicitis, diverticulitis, mesenteric ischemia, aortic pathology, infections, inflammatory bowel disease, PUD, biliary pathology, as well as other pathologies. ER treatment provided: See below Diagnostics interpreted by me: ECG: EKG was obtained in the emergency department. My interpretation is normal sinus rhythm at 96 bpm. There is no ectopy. Right bundle branch block pattern was appreciated. Cardiac Monitoring: An order was placed for continuous cardiac monitoring. The monitor shows a rate of 77 bpm with sinus rhythm. Laboratory studies: As stated above and show below. Imaging studies: See below. Radiographic imaging was reviewed by myself Consultation(s): I discussed this case with Dr[facility] Mack[facility] Past Med/Surg History Problem List (Updated 03/20/25 @ 19:59 by Tarun Castrejon DO) Intractable abdominal pain (Acute) Acute right flank pain (Acute) Encounter for pre-operative examination GI bleed (Acute) Anticoagulated (Acute) Bacteriuria Acute blood loss anemia Fall (Acute) History of pulmonary embolism (Chronic ~1998) Osteoarthritis of hip (Chronic) H/O gastric bypass (Chronic) rosenda-en-y Chronic back pain (Chronic) DJD (degenerative joint disease) of knee (Chronic) Medical History Bile acid esophageal reflux Morbid obesity with BMI of 45.0-49.9, adult Nausea and vomiting after administration of anesthetic agent On anticoagulant therapy coumadin daily d/t clotting disorder History of DVT (deep vein thrombosis) 1992 and 1998--was on control and prior clotting disorder 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 Migraine Blood clotting disorder 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 Surgical History History of cryosurgery on cervix History of dilatation and curettage History of total replacement of right hip History of total left knee replacement (TKR) History of esophagogastroduodenoscopy (EGD) History of bladder suspension procedure History of abdominoplasty History of appendectomy History of cholecystectomy History of section x2 History of colonoscopy History of wisdom tooth extraction History of tonsillectomy and adenoidectomy Family History Other Kidney stone No family history of adverse response to anesthesia Social History Smoking Status: Never smoker Second Hand Exposure: No; Do You Dip or Chew Tobacco: No; Hx Alcohol Use: Yes Alcohol type: hard liquor Hx Substance Use: No Preferred Language: Croatian Communication Ability: Effective Visual Impairment: No Limitations Hearing Ability: Normal 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 Beliefs That Will Affect Care: None marital status: marital status details: Current Living Situation: Spouse current occupational status: employed current occupation: Teacher Feels Safe at Home: Yes Assistive Devices: Cane and Glasses Allergies Allergies Allergy/AdvReac Type Severity Reaction Status Date / Time amoxicillin Allergy Intermediate HIVES Verified 06/18/21 14:17 morphine Allergy Intermediate HALLUCINATI Verified 06/18/21 14:17 ONS oxycodone Allergy Intermediate SEVERE PAIN Verified 06/18/21 14:17 Sulfa (Sulfonamide Allergy Mild RASH Verified 06/18/21 14:17 Antibiotics) sulfamethoxazole Allergy Mild Rash Verified 06/18/21 14:18 [From Bactrim] trimethoprim [From Bactrim] Allergy Mild Rash Verified 06/18/21 14:18 ketorolac [From Toradol] Allergy Unknown Unknown Verified 06/18/21 14:19 codeine AdvReac Intermediate IRRITABLE Verified 06/18/21 14:17 Home Meds Home Medications Medication Instructions Recorded Confirmed acetaminophen 500 mg tablet 1,000 mg PO Q4 PRN Pain 06/22/18 06/27/21 (Tylenol Extra Strength) ergocalciferol (vitamin D2) 1,250 50,000 unit PO 3XWK 06/22/18 06/27/21 mcg (50,000 unit) capsule (Vitamin D2) furosemide 40 mg tablet (Lasix) 40 mg PO QAM 06/22/18 06/27/21 gabapentin 100 mg capsule 200 mg PO TID 06/22/18 06/27/21 mometasone 50 mcg/actuation nasal 1 spray intranasal DAILY PRN 06/22/18 06/27/21 spray (Nasonex) Congestion multivitamin 1 tab PO HS 06/22/18 06/27/21 warfarin 5 mg tablet (Coumadin) 2.5 mg PO 2XWK 06/22/18 06/27/21 warfarin 5 mg tablet (Coumadin) 5 mg PO 5XWK 06/22/18 06/27/21 polyethylene glycol 3350 17 17 g PO DAILY PRN Constipation 08/10/18 06/27/21 gram/dose oral powder (Miralax) conjugated estrogens 0.625 mg/gram 1 applic vaginal UD 10/20/18 06/27/21 vaginal cream (Premarin) baclofen 10 mg tablet 10 mg PO HS 06/18/21 06/27/21 benzonatate 100 mg capsule 100 mg PO BID PRN Cough 06/18/21 06/27/21 cholecalciferol (vitamin D3) 125 125 mcg PO 4XWK 06/18/21 06/27/21 mcg (5,000 unit) tablet (Vitamin D3) nystatin 100,000 unit/gram topical 1 applic topical DAILY PRN Rash 06/18/21 06/27/21 cream sennosides 8.6 mg tablet (senna) 8.6 mg PO DAILY PRN Constipation 06/18/21 06/27/21 tramadol 50 mg tablet 50 mg PO DAILY PRN Pain 06/18/21 06/27/21 Previous Rx's Medication Instructions Recorded omeprazole 40 mg capsule,delayed 40 mg PO BID #60 caps 08/14/18 release tramadol 50 mg tablet 50 mg PO BID PRN pain #7 tabs 09/19/21 Results & Data (ED) Vital Signs Vital Signs - 24 hr 03/20/25 17:10 03/20/25 17:11 03/20/25 17:14 Temperature 36.9 C Temperature Source Oral Pulse Rate 96 H 96 H Pulse Rate [Left Apical] Pulse Rate from SpO2 Sensor Respiratory Rate 19 Respiratory Effort / Characteristics Non-Labored Spontaneous Respiratory Depth Normal Respiratory Pattern Regular Blood Pressure 152/100 H Blood Pressure [Right Radial Artery] Blood Pressure Mean 117 Blood Pressure Mean [Right Radial Artery] Pulse Oximetry 96 99 Oxygen Delivery Method Room Air Room Air Sepsis Recent Fever Within 48 Hours No Sepsis New/Unexplained Change in Mental Status N/A Sepsis Action Taken by Nursing No Action Required 03/20/25 17:51 03/20/25 18:00 03/20/25 18:12 Temperature Temperature Source Pulse Rate 91 H 85 Pulse Rate [Left Apical] 95 H Pulse Rate from SpO2 Sensor 83 Respiratory Rate 18 21 21 Respiratory Effort / Characteristics Non-Labored Spontaneous Respiratory Depth Normal Respiratory Pattern Regular Blood Pressure 152/94 H Blood Pressure [Right Radial Artery] 146/73 H Blood Pressure Mean 113 Blood Pressure Mean [Right Radial Artery] 97 Pulse Oximetry 93 94 99 Oxygen Delivery Method Room Air Room Air Sepsis Recent Fever Within 48 Hours Sepsis New/Unexplained Change in Mental Status Sepsis Action Taken by Nursing 03/20/25 18:15 03/20/25 18:15 03/20/25 18:15 Temperature Temperature Source Pulse Rate Pulse Rate [Left Apical] Pulse Rate from SpO2 Sensor Respiratory Rate Respiratory Effort / Characteristics Respiratory Depth Respiratory Pattern Blood Pressure 136/68 136/68 136/68 Blood Pressure [Right Radial Artery] Blood Pressure Mean 81 81 81 Blood Pressure Mean [Right Radial Artery] Pulse Oximetry Oxygen Delivery Method Sepsis Recent Fever Within 48 Hours Sepsis New/Unexplained Change in Mental Status Sepsis Action Taken by Nursing 03/20/25 18:15 03/20/25 18:15 03/20/25 18:15 Temperature Temperature Source Pulse Rate 84 Pulse Rate [Left Apical] Pulse Rate from SpO2 Sensor 85 Respiratory Rate 25 H Respiratory Effort / Characteristics Respiratory Depth Respiratory Pattern Blood Pressure 136/68 136/68 Blood Pressure [Right Radial Artery] Blood Pressure Mean 81 81 Blood Pressure Mean [Right Radial Artery] Pulse Oximetry 100 Oxygen Delivery Method Sepsis Recent Fever Within 48 Hours Sepsis New/Unexplained Change in Mental Status Sepsis Action Taken by Nursing 03/20/25 18:21 03/20/25 18:30 03/20/25 18:30 Temperature Temperature Source Pulse Rate 81 80 Pulse Rate [Left Apical] Pulse Rate from SpO2 Sensor 81 79 Respiratory Rate 12 20 Respiratory Effort / Characteristics Respiratory Depth Respiratory Pattern Blood Pressure 121/65 Blood Pressure [Right Radial Artery] Blood Pressure Mean 74 Blood Pressure Mean [Right Radial Artery] Pulse Oximetry 96 100 Oxygen Delivery Method Sepsis Recent Fever Within 48 Hours Sepsis New/Unexplained Change in Mental Status Sepsis Action Taken by Nursing 03/20/25 18:30 03/20/25 18:30 03/20/25 18:30 Temperature Temperature Source Pulse Rate Pulse Rate [Left Apical] Pulse Rate from SpO2 Sensor Respiratory Rate Respiratory Effort / Characteristics Respiratory Depth Respiratory Pattern Blood Pressure 121/65 121/65 121/65 Blood Pressure [Right Radial Artery] Blood Pressure Mean 74 74 74 Blood Pressure Mean [Right Radial Artery] Pulse Oximetry Oxygen Delivery Method Sepsis Recent Fever Within 48 Hours Sepsis New/Unexplained Change in Mental Status Sepsis Action Taken by Nursing 03/20/25 18:30 03/20/25 19:00 Temperature Temperature Source Pulse Rate Pulse Rate [Left Apical] 77 Pulse Rate from SpO2 Sensor Respiratory Rate 18 Respiratory Effort / Characteristics Respiratory Depth Respiratory Pattern Blood Pressure 121/65 Blood Pressure [Right Radial Artery] 130/66 Blood Pressure Mean 74 Blood Pressure Mean [Right Radial Artery] 87 Pulse Oximetry 99 Oxygen Delivery Method Room Air Sepsis Recent Fever Within 48 Hours Sepsis New/Unexplained Change in Mental Status Sepsis Action Taken by Custodial Medications Current Medication List: was personally reviewed by me Laboratory Data Attestation: I reviewed the patient's lab results. 03/20/25 17:10 03/20/25 17:10 Lab Results 03/20/25 03/20/25 03/20/25 Range/Units 17:10 17:18 17:30 WBC 7.38 (4.8-10.8) K/ul RBC 4.55 (4.20-5.40) M/uL Hgb 14.7 (12.0-16.0) g/dL POC Hgb 14.3 (12.0-16.0) g/dl Hct 43.6 (37.0-47.0) % POC Hct 42 (37-47) % MCV 95.8 (80.0-100.0) fL MCH 32.3 (25.0-34.0) pg MCHC 33.7 (32.0-36.0) g/dL RDW Std Deviation 48.5 H (36.4-46.3) fL RDW Coeff of Mary Ellen 13.6 (11.5-14.5) % Plt Count 361 (130-400) K/uL MPV 9.6 (9.4-12.4) fL Immature Gran % (Auto) 0.7 % Neut % (Auto) 76.6 % Lymph % (Auto) 13.4 % [place] % (Auto) 7.0 % Eos % (Auto) 1.8 % Baso % (Auto) 0.5 % Neut # (Auto) 5.65 (1.40-6.50) K/uL Lymph # (Auto) 0.99 L (1.20-3.40) K/uL [place] # (Auto) 0.52 (0.11-0.59) K/uL Eos # (Auto) 0.13 (0.00-0.50) K/uL Baso # (Auto) 0.04 (0.00-0.20) K/uL Immature Gran # (Auto) 0.05 (0.01-0.20) K/uL PT 27.2 H (9.0-12.0) Seconds INR 2.7 H (0.9-1.1) APTT 35 H (21-31) Seconds PTT Ratio 1.3 POC Sodium 138 (135-144) mmol/L Sodium 136 (136-145) mmol/L POC Potassium 4.4 (3.3-5.0) mmol/L Potassium 4.4 (3.5-5.1) mmol/L POC Chloride 105 (101-112) mmol/L Chloride 105 (98-107) mmol/L Carbon Dioxide 23 (21-32) mmol/L POC Total CO2 22 L (24-31) mmol/L Anion Gap 8 (3-11) POC Anion Gap 16.0 (16-25) mmol/L POC BUN 20 H (7-18) mg/dl BUN 18 (6-23) mg/dl Creatinine 0.56 L (0.6-1.2) mg/dl POC Creatinine 0.6 (0.6-1.3) mg/dl Est Cr Clr Drug Dosing 128.1 ml/min eGFR 99.97 BUN/Creatinine Ratio 32.1 H (10-20) Glucose 92 (70-99(Fasting)) mg/dl POC Glucose (other) 92 (70-99) mg/dl Calcium 9.2 (8.6-10.3) mg/dl POC Ioniz Calcium Lee 1.16 (1.12-1.32) mmol/l Total Bilirubin 0.5 (0.2-1.0) mg/dl AST 25 (13-39) U/L ALT 19 (7-52) U/L Alkaline Phosphatase 62 (34-104) U/L Troponin I High Sens 4.7 (0-14) pg/ml Total Protein 7.4 (6.0-8.3) gm/dl Albumin 4.0 (3.4-5.0) gm/dl Globulin 3.4 (2.5-4.0) gm/dl Albumin/Globulin Ratio 1.2 (0.9-2) Lipase 19 (11-82) U/L Urine Color Yellow Urine Appearance Cloudy A (Clear) Urine pH 5.5 (4.5-7.5) Ur Specific [place] 1.017 (1.000-1.030) Urine Protein Negative (Negative) Urine Glucose (UA) Negative (Negative) Urine Ketones Trace H (Negative) Urine Blood Negative (Negative) Urine Nitrite Negative (Negative) Urine Bilirubin Negative (Negative) Urine Urobilinogen Negative (Negative) Ur Leukocyte Esterase Negative (Negative) Urine WBC (Auto) 0-5 (0-5) /hpf Urine RBC (Auto) 0-2 (0-2) /hpf U Hyaline Cast (Auto) 0-2 (0-2) /lpf U Epithel Cells (Auto) >20 H (0-2) /hpf Urine Bacteria (Auto) 4+ H (None Seen) Hyaline Casts Present A (None Presnt) /lpf Urine Yeast Present A (None Prsent) Urine Comment Administered Medications Discontinued Medications Fentanyl Citrate (Fentanyl Citrate Pf 100 Mcg/2 Ml Vial) 100 mcg IV Q15M PRN PRN Reason: Pain Stop: 04/03/25 17:10 Last Admin: 03/20/25 18:49 Dose: 100 mcg Documented By: anuja Admin: 03/20/25 17:58 Dose: 100 mcg Documented By: Admin: 03/20/25 17:16 Dose: 100 mcg Documented By: anuja Sodium Chloride (Nss) 500 mls @ 999 mls/hr IV .Q31M STA Stop: 03/20/25 17:41 Last Infusion: 03/20/25 18:18 Dose: Infused Documented By: anuja Admin: 03/20/25 17:20 Dose: 999 mls/hr Documented By: anuja Ioversol (Optiray 320 100ml) 90 ml IV ONCE ONE Stop: 03/20/25 17:57 Last Admin: 03/20/25 17:56 Dose: 90 ml Documented By: MILADY Ondansetron HCl (Ondansetron Inj 2 Mg/Ml 2 Ml Vial) 4 mg IV NOW STA Stop: 03/20/25 17:12 Last Admin: 03/20/25 17:16 Dose: 4 mg Documented By: anuja Imaging Data Attestation: I personally reviewed and interpreted this imaging study as follows: My Impression: CT of the abdomen and pelvis was obtained in the emergency department. My interpretation is no free air or definite bowel obstruction, final report below. Radiologist's Impression: Abdomen/Pelvis CT 03/20/25 17:11 EXAMINATION: CT of the abdomen and pelvis performed after the administration of IV contrast TECHNIQUE: Helical CT images from the lung bases through the symphysis pubis were obtained with contrast. Coronal and sagittal reformatted images were generated at a workstation for further assessment. Dose reduction techniques were achieved by using automatic exposure control and/or adjustment of mA and/or kV according to patient size and/or use of iterative reconstruction technique. COMPARISON: 01/04/2024 HISTORY: Abdominal pain FINDINGS: Lower chest: No consolidation. No pleural effusion or pneumothorax. Liver: No suspicious liver lesions. Portal veins appear patent. Gallbladder: Cholecystectomy. Spleen: Normal size. Pancreas: No suspicious pancreatic lesions. The pancreatic duct is not dilated. Adrenal glands: Unchanged 1.5 cm right adrenal nodule. Kidneys: No hydronephrosis or obstructing renal stones. Bladder / Pelvic organs: Unremarkable. Bowel: No bowel obstruction. No abnormal bowel wall thickening. The appendix is not seen. Rosenda-en-Y gastric bypass. Lymph nodes: No retroperitoneal, mesenteric, or pelvic lymphadenopathy. Peritoneum / Retroperitoneum: No free fluid or air within the abdomen. Vessels: No infrarenal aortic aneurysm. IVC filter in place. Bones and soft tissues: No suspicious lesion in the bones. Total right hip arthroplasty. IMPRESSION: No acute finding in the abdomen or pelvis Electronically signed by Chicho Shah 03-20-2025 6:29 PM Discharge Plan Visit Data Chief Complaint: Flank Pain Stated Complaint: R FLANK/BACK PAIN, DX WITH BLADDER INFECTION ED Provider: Tarun Castrejon Discharge Problem: Acute right flank pain, Intractable abdominal pain Patient Disposition: Being Evaluated by Hospitalist Condition: Fair Forms Stand Alone Forms: [facility] Prescriptions Prescriptions: No Action polyethylene glycol 3350 [Miralax] 17 gram/dose Powder 17 g PO DAILY PRN (Reason: Constipation) omeprazole 40 mg capsule,delayed release(DR/EC) 40 mg PO BID Qty: 60 5RF multivitamin Tablet 1 tab PO HS furosemide [Lasix] 40 mg Tablet 40 mg PO QAM acetaminophen [Tylenol Extra Strength] 500 mg Tablet 1,000 mg PO Q4 PRN (Reason: Pain) warfarin [Coumadin] 5 mg Tablet 5 mg PO 5XWK Rx Instructions: Wednesday, Wednesday, Wednesday, Wednesday, Wednesday at bedtime warfarin [Coumadin] 5 mg Tablet 2.5 mg PO 2XWK Patient Comments: wed/ mometasone [Nasonex] 50 mcg/actuation [place],Non-Aerosol 1 spray INTRANASAL DAILY PRN (Reason: Congestion) gabapentin 100 mg Capsule 200 mg PO TID ergocalciferol (vitamin D2) [Vitamin D2] 50,000 unit Capsule 50,000 unit PO 3XWK Patient Comments: wed/wed/wed Premarin 0.625 mg/gram cream 1 applic vaginal UD tramadol 50 mg tablet 50 mg PO BID PRN (Reason: pain) Qty: 7 0RF cholecalciferol (vitamin D3) [Vitamin D3] 125 mcg (5,000 unit) Tablet 125 mcg PO 4XWK Patient Comments: takes in the am tramadol 50 mg Tablet 50 mg PO DAILY PRN (Reason: Pain) baclofen 10 mg Tablet 10 mg PO HS benzonatate 100 mg Capsule 100 mg PO BID PRN (Reason: Cough) sennosides [senna] 8.6 mg Tablet 8.6 mg PO DAILY PRN (Reason: Constipation) nystatin 100,000 unit/gram Cream 1 applic TOPICAL DAILY PRN (Reason: Rash) Referrals Referrals: Ethan Wilcox MD [Primary Care Provider] -
[2025-03-20 17:28] LABS: Hematocrit (blood only) 43.6 % (37.0-47.0); Hemoglobin 14.7 g/dL (12.0-16.0); Immature Granulocytes # (auto) 0.05 K/uL (0.01-0.20); Immature Granulocytes % (auto) 0.7 %; Mean Corpuscular Hemoglobin 32.3 pg (25.0-34.0); Mean Corpuscular Volume 95.8 fL (80.0-100.0); Platelet Count 361 K/uL (130-400); RDW Standard Deviation 48.5 fL (36.4-46.3); Red Blood Count 4.55 M/uL (4.20-5.40); White Blood Count 7.38 K/ul (4.8-10.8)
[2025-03-20 17:46] LABS: Alanine Aminotransferase 19.0 U/L (7-52); Albumin Globulin Ratio 1.2 (0.9-2); Albumin Level 4.0 gm/dl (3.4-5.0); Alkaline Phosphatase 62.0 U/L (34-104); Anion Gap 8.0 (3-11); Bilirubin,Total 0.5 mg/dl (0.2-1.0); Blood Urea Nitrogen 18.0 mg/dl (6-23); Calcium 9.2 mg/dl (8.6-10.3); Carbon Dioxide 23.0 mmol/L (21-32); Chloride 105.0 mmol/L (98-107); Creatinine Clr Calc Pharmacy 128.1 ml/min; Globulin 3.4 gm/dl (2.5-4.0); Glucose 92.0 mg/dl (70-99(Fasting)); Lipase 19.0 U/L (11-82); Potassium 4.4 mmol/L (3.5-5.1); Sodium 136.0 mmol/L (136-145); Total Protein 7.4 gm/dl (6.0-8.3)
[2025-03-20 17:56] LABS: INR 2.7 (0.9-1.1); Partial Thromboplastin Time 35 Seconds (21-31); Prothrombin Time 27.2 Seconds (9.0-12.0)
[2025-03-20] MEDS: OPTIRAY 320 100ml IV ONE (17:56)
[2025-03-20 18:16] LABS: Appearance Urine Cloudy (Clear); Cast Urine Automated 0-2 /lpf (0-2); Glucose Urine UA Negative (Negative); WBC Urine Automated 0-5 /hpf (0-5)
[2025-03-20 18:25] LABS: Epithelial Cell Urine Auto >20 /hpf (0-2)
[2025-03-20 18:26] LABS: Bacteria Urine Automated 4+ (None Seen); RBC Urine Automated 0-2 /hpf (0-2)
--- NOTE | 2025-03-20 18:30 | CT Scan Report ---
EXAMINATION: CT of the abdomen and pelvis performed after the administration of IV contrast TECHNIQUE: Helical CT images from the lung bases through the symphysis pubis were obtained with contrast. Coronal and sagittal reformatted images were generated at a workstation for further assessment. Dose reduction techniques were achieved by using automatic exposure control and/or adjustment of mA and/or kV according to patient size and/or use of iterative reconstruction technique. COMPARISON: 01/04/2024 HISTORY: Abdominal pain FINDINGS: Lower chest: No consolidation. No pleural effusion or pneumothorax. Liver: No suspicious liver lesions. Portal veins appear patent. Gallbladder: Cholecystectomy. Spleen: Normal size. Pancreas: No suspicious pancreatic lesions. The pancreatic duct is not dilated. Adrenal glands: Unchanged 1.5 cm right adrenal nodule. Kidneys: No hydronephrosis or obstructing renal stones. Bladder / Pelvic organs: Unremarkable. Bowel: No bowel obstruction. No abnormal bowel wall thickening. The appendix is not seen. Rayne-en-Y gastric bypass. Lymph nodes: No retroperitoneal, mesenteric, or pelvic lymphadenopathy. Peritoneum / Retroperitoneum: No free fluid or air within the abdomen. Vessels: No infrarenal aortic aneurysm. IVC filter in place. Bones and soft tissues: No suspicious lesion in the bones. Total right hip arthroplasty. IMPRESSION: No acute finding in the abdomen or pelvis Electronically signed by Chicho Shah 03-20-2025 6:29 PM
[2025-03-20] MEDS ORDERED: ACETAMINOPHEN 1,000 MG/100 ML VIAL IV PRN (19:59)
--- NOTE | 2025-03-20 20:13 | History & Physical Report ---
Date of Service March 20, 2025 Assessment & Plan (1) Flank pain: Plan: Assessment and plan below following discussion of case with ED provider and reviewing patient history/pertinent normal/abnormal diagnostic test results. Right flank pain Intractable symptoms Likely musculoskeletal Rule out occult vertebral fracture due to paraspinal location hypertension, stable bronchial asthma, not in acute exacerbation history of PE on Coumadin, INR therapeutic history gastric bypass history of traumatic subdural hematoma Bilateral adrenal nodules on outpatient imaging Complicated UTI, no sepsis for now, pansensitive E. coli on outpatient urine CS, ongoing cephalosporin Rx OBS Admit to MedSurg Analgesia MRI lumbar spine Outpatient Endocrinology eval for bilateral adrenal nodules. PT eval DVT prophylaxis. Coumadin INR goal between 2 and 3 without need for intervention Full code Patient requesting updates providers. Mr. Russell Vergara, contact #[phone]. Text document was generated using Doctor kinetic recognition software. It may contain grammatical or spelling errors. Kindly contact undersigned for clarification of any documentation item in question. History of Present Illness Chief Complaint: Uncontrolled right flank pain Primary Care Provider: Ethan Wilcox MD History obtained from patient, family, and records. Medical history significant for hypertension, bronchial asthma, hypercoagulable state (hx PE/DVT status post IVC filter placement last prothrombin gene mutation) on Coumadin, history gastric bypass, GERD, history of traumatic subdural hematoma, adrenal nodules as per records, morbid obesity. Last confinement 2018 for UGIB. 2 weeks history of achy right flank pain complaints somewhat similar to kidney stone. Denies hematuria, fever, chills. No chest pain, no SOB. No recollection of recent trauma. Flank pain somewhat worse on ambulation. Patient seen at PCPs office last week. UA WBC esterase Urine CS later grew pansensitive E. coli. Renal ultrasound showed Cortical scarring in the mid-segment of the right kidney. No hydronephrosis bilaterally. Patient prescribed oral Cefuroxime prescribed course. Worsening pain despite antibiotic Rx. Right-sided low back pain without radiation to the legs. Denies leg weakness. No fever, no chills. Intractable pain at the ER. Medical History as above Surgical History : IVC filter, section, panniculectomy, gastric revision/bypass, appendectomy, tonsillectomy, cholecystectomy, cystocele repair, hip replacement, liver biopsy) Family History : Stomach cancer Personal/Social history : Non-smoker, occasional EtOH intake, preschool associate teacher Allergies Allergy/AdvReac Type Severity Reaction Status Date / Time amoxicillin Allergy Intermediate HIVES Verified 03/20/25 20:18 morphine Allergy Intermediate HALLUCINATI Verified 03/20/25 20:18 ONS oxycodone Allergy Intermediate SEVERE PAIN Verified 03/20/25 20:18 Sulfa (Sulfonamide Allergy Mild RASH Verified 03/20/25 20:18 Antibiotics) sulfamethoxazole Allergy Mild Rash Verified 03/20/25 20:18 [From Bactrim] trimethoprim [From Bactrim] Allergy Mild Rash Verified 03/20/25 20:18 ketorolac [From Toradol] Allergy Unknown Unknown Verified 03/20/25 20:18 codeine AdvReac Intermediate IRRITABLE Verified 03/20/25 20:18 Home Medications Medication Instructions Recorded Confirmed Type acetaminophen 500 mg tablet 1,000 mg PO Q4 PRN Pain 06/22/18 03/20/25 History (Tylenol Extra Strength) furosemide 40 mg tablet (Lasix) 40 mg PO QAM 06/22/18 03/20/25 History multivitamin 1 tab PO HS 06/22/18 03/20/25 History polyethylene glycol 3350 17 17 g PO DAILY PRN Constipation 08/10/18 03/20/25 History gram/dose oral powder (Miralax) conjugated estrogens 0.625 mg/gram 1 applic vaginal UD 10/20/18 03/20/25 History vaginal cream (Premarin) baclofen 10 mg tablet 10 mg PO HS PRN MUSCLE SPASMS 06/18/21 03/20/25 History nystatin 100,000 unit/gram topical 1 applic topical DAILY PRN Rash 06/18/21 03/20/25 History cream tramadol 50 mg tablet 50 mg PO Q6H PRN Pain 06/18/21 03/20/25 History bupropion HCl 150 mg tablet,12 hr 150 mg PO Q12H 03/20/25 03/20/25 History sustained-release (Wellbutrin SR) calcium 600 mg (as 2 tab PO BID 03/20/25 03/20/25 History carbonate)-vitamin D3 5 mcg (200 unit) tablet cefuroxime axetil 500 mg tablet 500 mg PO BID 03/20/25 03/20/25 History cyanocobalamin (vitamin B-12) 1,000 mcg subcut Q3M 03/20/25 03/20/25 History 1,000 mcg/mL injection solution famotidine 40 mg tablet (Pepcid) 40 mg PO HS 03/20/25 03/20/25 History irbesartan 75 mg tablet 75 mg PO DAILY 03/20/25 03/20/25 History linaclotide 145 mcg capsule 145 mcg PO DAILYBB 03/20/25 03/20/25 History (Linzess) mometasone 50 mcg/actuation nasal 1 spray intranasal DAILY PRN 03/20/25 03/20/25 History spray Congestion pantoprazole 40 mg tablet,delayed 40 mg PO QAM 03/20/25 03/20/25 History release (Protonix) prednisone 20 mg tablet 20 mg PO .TAPER DOSE 03/20/25 03/20/25 History sucralfate 1 gram tablet (Carafate) 1 g PO QID PRN GASTRIC PAIN 03/20/25 03/20/25 History tamsulosin 0.4 mg capsule 0.4 mg PO DAILY 03/20/25 03/20/25 History torsemide 100 mg tablet 100 mg PO DAILY PRN Fluid Retention 03/20/25 03/20/25 History warfarin 2.5 mg tablet 2.5 mg PO .EVERY TUES & THUR 03/20/25 03/20/25 History warfarin 5 mg tablet 5 mg PO .SEE ATTACHED 03/20/25 03/20/25 History Past Med/Surg History Problem List (Updated 03/21/25 @ 08:00 by Guerrero Mackay MD) Flank pain Intractable abdominal pain (Acute) Acute right flank pain (Acute) Encounter for pre-operative examination GI bleed (Acute) Anticoagulated (Acute) Bacteriuria Acute blood loss anemia Fall (Acute) History of pulmonary embolism (Chronic ~1998) Osteoarthritis of hip (Chronic) H/O gastric bypass (Chronic) rosenda-en-y Chronic back pain (Chronic) DJD (degenerative joint disease) of knee (Chronic) Medical History Bile acid esophageal reflux Morbid obesity with BMI of 45.0-49.9, adult Nausea and vomiting after administration of anesthetic agent On anticoagulant therapy coumadin daily d/t clotting disorder History of DVT (deep vein thrombosis) 1992 and 1998--was on control and prior clotting disorder 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 Migraine Blood clotting disorder 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 Surgical History History of cryosurgery on cervix History of dilatation and curettage History of total replacement of right hip History of total left knee replacement (TKR) History of esophagogastroduodenoscopy (EGD) History of bladder suspension procedure History of abdominoplasty History of appendectomy History of cholecystectomy History of section x2 History of colonoscopy History of wisdom tooth extraction History of tonsillectomy and adenoidectomy Family History Other Kidney stone No family history of adverse response to anesthesia Social History Smoking Status: Never smoker Second Hand Exposure: No; Do You Dip or Chew Tobacco: No; Hx Alcohol Use: Yes Alcohol type: hard liquor Hx Substance Use: No Preferred Language: [place] Communication Ability: Effective Visual Impairment: No Limitations Hearing Ability: Normal Pipelines Manager Required: No Beliefs That Will Affect Care: None marital status: marital status details: Current Living Situation: Spouse current occupational status: employed current occupation: Teacher Other Information That Helps Us Care for You: No Feels Safe at Home: Yes Safety Concerns: Feels Safe At This Time Assistive Devices: Cane Review of Systems Review of Systems: As per HPI, all other systems reviewed and negative Physical Exam Physical Exam: GENERAL: Uncomfortable, morbidly obese, no respiratory distress SKIN: Normal color, warm HEENT: [place] palpebral conjunctivae, no ptosis, dry buccal mucosa NECK : Supple, no tenderness CHEST : CTA, no tenderness HEART : RRR, no obvious murmurs ABDOMEN: Some distention, nontender BACK : Right low back tenderness, negative SLR EXTREMITIES : Minimal LE swelling, no LE tenderness, palpable pulses, no other conspicuous deformities noted NEUROLOGIC : Coherent, no facial asymmetry, gait and stance not assessed Results & Data Results & Data Vital Signs (Past 12 Hours) Vital Signs Temp Pulse Pulse Resp BP BP Pulse Ox 03/20/25 19:00 77 18 130/66 99 03/20/25 18:30 121/65 03/20/25 18:30 121/65 03/20/25 18:30 121/65 03/20/25 18:30 121/65 03/20/25 18:30 121/65 03/20/25 18:30 80 20 100 03/20/25 18:21 81 12 96 03/20/25 18:15 84 25 H 100 03/20/25 18:15 136/68 03/20/25 18:15 136/68 03/20/25 18:15 136/68 03/20/25 18:15 136/68 03/20/25 18:15 136/68 03/20/25 18:12 85 21 99 03/20/25 18:00 91 H 21 152/94 H 94 03/20/25 17:51 95 H 18 146/73 H 93 03/20/25 17:14 96 H 03/20/25 17:11 99 03/20/25 17:10 36.9 C 96 H 19 152/100 H 96 O2 Del Method 03/20/25 19:00 Room Air 03/20/25 18:30 03/20/25 18:30 03/20/25 18:30 03/20/25 18:30 03/20/25 18:30 03/20/25 18:30 03/20/25 18:21 03/20/25 18:15 03/20/25 18:15 03/20/25 18:15 03/20/25 18:15 03/20/25 18:15 03/20/25 18:15 03/20/25 18:12 03/20/25 18:00 Room Air 03/20/25 17:51 Room Air 03/20/25 17:14 03/20/25 17:11 Room Air 03/20/25 17:10 Room Air Laboratory Results Laboratory Results WBC 7.38 K/ul (4.8-10.8) 03/20/25 17:10 RBC 4.55 M/uL (4.20-5.40) 03/20/25 17:10 Hgb 14.7 g/dL (12.0-16.0) 03/20/25 17:10 POC Hgb 14.3 g/dl (12.0-16.0) 03/20/25 17:18 Hct 43.6 % (37.0-47.0) 03/20/25 17:10 POC Hct 42 % (37-47) 03/20/25 17:18 MCV 95.8 fL (80.0-100.0) 03/20/25 17:10 MCH 32.3 pg (25.0-34.0) 03/20/25 17:10 MCHC 33.7 g/dL (32.0-36.0) 03/20/25 17:10 RDW Std Deviation 48.5 fL (36.4-46.3) H 03/20/25 17:10 RDW Coeff of Mary Ellen 13.6 % (11.5-14.5) 03/20/25 17:10 Plt Count 361 K/uL (130-400) 03/20/25 17:10 MPV 9.6 fL (9.4-12.4) 03/20/25 17:10 Immature Gran % (Auto) 0.7 % 03/20/25 17:10 Neut % (Auto) 76.6 % 03/20/25 17:10 Lymph % (Auto) 13.4 % 03/20/25 17:10 [place] % (Auto) 7.0 % 03/20/25 17:10 Eos % (Auto) 1.8 % 03/20/25 17:10 Baso % (Auto) 0.5 % 03/20/25 17:10 Neut # (Auto) 5.65 K/uL (1.40-6.50) 03/20/25 17:10 Lymph # (Auto) 0.99 K/uL (1.20-3.40) L 03/20/25 17:10 [place] # (Auto) 0.52 K/uL (0.11-0.59) 03/20/25 17:10 Eos # (Auto) 0.13 K/uL (0.00-0.50) 03/20/25 17:10 Baso # (Auto) 0.04 K/uL (0.00-0.20) 03/20/25 17:10 Immature Gran # (Auto) 0.05 K/uL (0.01-0.20) 03/20/25 17:10 PT 27.2 Seconds (9.0-12.0) H 03/20/25 17:10 INR 2.7 (0.9-1.1) H 03/20/25 17:10 APTT 35 Seconds (21-31) H 03/20/25 17:10 PTT Ratio 1.3 03/20/25 17:10 POC Sodium 138 mmol/L (135-144) 03/20/25 17:18 Sodium 136 mmol/L (136-145) 03/20/25 17:10 POC Potassium 4.4 mmol/L (3.3-5.0) 03/20/25 17:18 Potassium 4.4 mmol/L (3.5-5.1) 03/20/25 17:10 POC Chloride 105 mmol/L (101-112) 03/20/25 17:18 Chloride 105 mmol/L (98-107) 03/20/25 17:10 Carbon Dioxide 23 mmol/L (21-32) 03/20/25 17:10 POC Total CO2 22 mmol/L (24-31) L 03/20/25 17:18 Anion Gap 8 (3-11) 03/20/25 17:10 POC Anion Gap 16.0 mmol/L (16-25) 03/20/25 17:18 POC BUN 20 mg/dl (7-18) H 03/20/25 17:18 BUN 18 mg/dl (6-23) 03/20/25 17:10 Creatinine 0.56 mg/dl (0.6-1.2) L 03/20/25 17:10 POC Creatinine 0.6 mg/dl (0.6-1.3) 03/20/25 17:18 Est Cr Clr Drug Dosing 128.1 ml/min 03/20/25 17:10 eGFR 99.97 03/20/25 17:10 BUN/Creatinine Ratio 32.1 (10-20) H 03/20/25 17:10 Glucose 92 mg/dl (70-99(Fasting)) 03/20/25 17:10 POC Glucose (other) 92 mg/dl (70-99) 03/20/25 17:18 Calcium 9.2 mg/dl (8.6-10.3) 03/20/25 17:10 POC Ioniz Calcium [place] 1.16 mmol/l (1.12-1.32) 03/20/25 17:18 Total Bilirubin 0.5 mg/dl (0.2-1.0) 03/20/25 17:10 AST 25 U/L (13-39) 03/20/25 17:10 ALT 19 U/L (7-52) 03/20/25 17:10 Alkaline Phosphatase 62 U/L (34-104) 03/20/25 17:10 Troponin I High Sens 4.7 pg/ml (0-14) 03/20/25 17:10 Total Protein 7.4 gm/dl (6.0-8.3) 03/20/25 17:10 Albumin 4.0 gm/dl (3.4-5.0) 03/20/25 17:10 Globulin 3.4 gm/dl (2.5-4.0) 03/20/25 17:10 Albumin/Globulin Ratio 1.2 (0.9-2) 03/20/25 17:10 Lipase 19 U/L (11-82) 03/20/25 17:10 Urine Color Yellow 03/20/25 17:30 Urine Appearance Cloudy (Clear) A 03/20/25 17:30 Urine pH 5.5 (4.5-7.5) 03/20/25 17:30 Ur Specific [place] 1.017 (1.000-1.030) 03/20/25 17:30 Urine Protein Negative (Negative) 03/20/25 17:30 Urine Glucose (UA) Negative (Negative) 03/20/25 17:30 Urine Ketones Trace (Negative) H 03/20/25 17:30 Urine Blood Negative (Negative) 03/20/25 17:30 Urine Nitrite Negative (Negative) 03/20/25 17:30 Urine Bilirubin Negative (Negative) 03/20/25 17:30 Urine Urobilinogen Negative (Negative) 03/20/25 17:30 Ur Leukocyte Esterase Negative (Negative) 03/20/25 17:30 Urine WBC (Auto) 0-5 /hpf (0-5) 03/20/25 17:30 Urine RBC (Auto) 0-2 /hpf (0-2) 03/20/25 17:30 U Hyaline Cast (Auto) 0-2 /lpf (0-2) 03/20/25 17:30 U Epithel Cells (Auto) >20 /hpf (0-2) H 03/20/25 17:30 Urine Bacteria (Auto) 4+ (None Seen) H 03/20/25 17:30 Hyaline Casts Present /lpf (None Presnt) A 03/20/25 17:30 Urine Yeast Present (None Prsent) A 03/20/25 17:30 Urine Comment 03/20/25 17:30 Impressions Abdomen/Pelvis CT 03/20/25 17:11 EXAMINATION: CT of the abdomen and pelvis performed after the administration of IV contrast TECHNIQUE: Helical CT images from the lung bases through the symphysis pubis were obtained with contrast. Coronal and sagittal reformatted images were generated at a workstation for further assessment. Dose reduction techniques were achieved by using automatic exposure control and/or adjustment of mA and/or kV according to patient size and/or use of iterative reconstruction technique. COMPARISON: 01/04/2024 HISTORY: Abdominal pain FINDINGS: Lower chest: No consolidation. No pleural effusion or pneumothorax. Liver: No suspicious liver lesions. Portal veins appear patent. Gallbladder: Cholecystectomy. Spleen: Normal size. Pancreas: No suspicious pancreatic lesions. The pancreatic duct is not dilated. Adrenal glands: Unchanged 1.5 cm right adrenal nodule. Kidneys: No hydronephrosis or obstructing renal stones. Bladder / Pelvic organs: Unremarkable. Bowel: No bowel obstruction. No abnormal bowel wall thickening. The appendix is not seen. Rosenda-en-Y gastric bypass. Lymph nodes: No retroperitoneal, mesenteric, or pelvic lymphadenopathy. Peritoneum / Retroperitoneum: No free fluid or air within the abdomen. Vessels: No infrarenal aortic aneurysm. IVC filter in place. Bones and soft tissues: No suspicious lesion in the bones. Total right hip arthroplasty. IMPRESSION: No acute finding in the abdomen or pelvis Electronically signed by Chicoh Shah 03-20-2025 6:[address]: No acute abnormality. Diagnostic Findings EKG as per my interpretation :Rate 95, NSR, RAD, RBBB, T wave abnormalities inferior leads
[2025-03-20] MEDS: HYDROmorphone INJ 0.5 MG/0.5 ML SYR IV PRN (21:35)
--- NOTE | 2025-03-20 22:16 | CT Scan Report ---
Exam(s): CT L SPINE With Contrast IV Amt: 93 ml optiray 320 EXAM: CT Lumbar Spine With Intravenous Contrast CLINICAL HISTORY: Reason for exam: r flank pain (obtain from ctap images). TECHNIQUE: Axial computed tomography images of the lumbar spine with intravenous contrast. CTDI is 28.14 mGy and DLP is 1528 mGy-cm. Automated exposure control was utilized for the study. A dose lowering technique was utilized adhering to the principles of ALARA. CONTRAST: Patient received 93 ml optiray 320 of IV contrast COMPARISON: No relevant prior studies available. FINDINGS: Vertebrae: No fracture or malalignment. Hemangioma within T12. Discs/spinal canal/neural foramina: No acute findings. No significant spinal canal stenosis. Cyst mild scattered foraminal stenosis. Soft tissues: Unremarkable. Vasculature: IVC filter in place. IMPRESSION: No acute abnormality. Electronically signed by: Tyshawn Cruz MD 03/20/25 22:16 PM
[2025-03-21] MEDS: LIDOCAINE 5% 1 PATCH TD SCH (00:06)
[2025-03-21] MEDS: PROMETHAZINE 12.5 MG/50.5 ML BAG IV PRN (00:07)
[2025-03-21] MEDS: HYDROCODONE/ACETAMOPHEN 5/325MG TAB PO PRN (01:17)
--- NOTE | 2025-03-21 02:10 | Magnetic Resonance Report ---
Exam(s): MRI L SPINE Without Contrast EXAM: MR Lumbar Spine Without Intravenous Contrast CLINICAL HISTORY: Reason for exam: R back pain. TECHNIQUE: Magnetic resonance images of the lumbar spine without intravenous contrast in multiple planes. Moderate motion artifact. COMPARISON: CT lumbar spine, same day. FINDINGS: Vertebrae: T12 vertebral hemangioma. No marrow edema, compression deformity, discitis or osteomyelitis. Conus: No abnormal signal. Soft tissues: No epidural fluid collection. Severe atrophy erector spinae muscles bilaterally. DISCS/SPINAL CANAL/NEURAL FORAMINA: L1-L2: Unremarkable. L2-L3: Mild disc bulge and facet hypertrophy with borderline central spinal stenosis. L3-L4: Moderate narrowing and disc bulge, with borderline central spinal stenosis. Mild bilateral foraminal stenosis. L4-L5: Severe narrowing, mild disc bulge. Mild left foraminal stenosis. L5-S1: Unremarkable. OTHER: No isolated disc herniation. No significant central spinal stenosis. Moderate to severe facet hypertrophy throughout. IMPRESSION: 1. Degenerative disc disease, most notable at L2-3 and L3-4 where there is borderline central spinal stenosis. 2. No disc herniation, significant spinal stenosis, epidural hematoma/abscess, abnormal conus signal, compression deformity or discitis/osteomyelitis. Electronically signed by: Kaley Palacios M.D. 03/21/25 02:09 AM
[2025-03-21] MEDS: ACETAMINOPHEN 500 MG TAB PO PRN (06:34)
[2025-03-21 07:40] LABS: Hematocrit (blood only) 38.7 % (37.0-47.0); Hemoglobin 12.9 g/dL (12.0-16.0); Immature Granulocytes # (auto) 0.03 K/uL (0.01-0.20); Immature Granulocytes % (auto) 0.4 %; Mean Corpuscular Hemoglobin 32.2 pg (25.0-34.0); Mean Corpuscular Volume 96.5 fL (80.0-100.0); Platelet Count 323 K/uL (130-400); RDW Standard Deviation 49.1 fL (36.4-46.3); Red Blood Count 4.01 M/uL (4.20-5.40); White Blood Count 6.89 K/ul (4.8-10.8)
[2025-03-21] MEDS ORDERED: ACETAMINOPHEN 500 MG TAB PO PRN (08:03)
[2025-03-21] MEDS ORDERED: SUCRALFATE 1 GM TAB PO PRN (08:03)
[2025-03-21] MEDS ORDERED: NYSTATIN CR 15 GM TUBE EXT PRN (08:03)
[2025-03-21] MEDS ORDERED: POLYETHYLENE (MIRALAX) 17 GM PACK PO PRN (08:03)
[2025-03-21 08:12] LABS: INR 2.3 (0.9-1.1); Prothrombin Time 22.9 Seconds (9.0-12.0)
[2025-03-21] MEDS ORDERED: WARFARIN SOD 2.5 MG TAB PO SCH (08:15)
[2025-03-21] MEDS ORDERED: WARFARIN SOD 5 MG TAB PO SCH (08:15)
[2025-03-21 08:19] LABS: Anion Gap 4.0 (3-11); Blood Urea Nitrogen 13.0 mg/dl (6-23); Calcium 8.6 mg/dl (8.6-10.3); Carbon Dioxide 27.0 mmol/L (21-32); Chloride 106.0 mmol/L (98-107); Creatinine Clr Calc Pharmacy 132.8 ml/min; Glucose 92.0 mg/dl (70-99(Fasting)); Potassium 4.3 mmol/L (3.5-5.1); Sodium 137.0 mmol/L (136-145)
[2025-03-21] MEDS ORDERED: FLUTICASONE PROPIONATE NA SPR 16 GM BTL PRN (08:24)
[2025-03-21] MEDS: LOSARTAN POTASSIUM 25 MG TAB PO SCH (09:55)
[2025-03-21] MEDS: CALCIUM 600MG + VIT D 400 IU TAB PO SCH (10:06)
[2025-03-21] MEDS: REMOVE LIDODERM PATCH SCH (10:07)
[2025-03-21] MEDS: TAMSULOSIN HCL 0.4 MG CAP PO SCH (10:07)
--- NOTE | 2025-03-21 10:31 | Electrocardiogram Report ---
Test Reason : Blood Pressure : */* mmHG Vent. Rate : 96 BPM Atrial Rate : 96 BPM P-R Int : 124 ms QRS Dur : 128 ms QT Int : 410 ms P-R-T Axes : 41 95 36 degrees QTcB Int : 517 ms Normal sinus rhythm Right bundle branch block Abnormal ECG When compared with ECG of 17-Dec-2016 16:21, Right bundle branch block is now Present Confirmed by Tarun Carney ([id number]) on 03/21/2025 10:30:54 AM Referred By: Confirmed By: Tarun Carney
--- NOTE | 2025-03-21 11:49 | Hospitalist Progress Note ---
Date of Service March 21, 2025 Assessment & Plan (1) Flank pain: Plan: Right flank pain Intractable symptoms Likely musculoskeletal Patient presented with severe right-sided flank pain. Imaging results including abdominal CT, lumbar CT and lumbar spine MRI do not show any acute finding. Pain improved with medications; continue pain control with hydrocodone/acetaminophen, Dilaudid Continue ambulation Monitor for recurrence of pain Outpatient Endocrinology eval for bilateral adrenal nodules. Continue PT hypertension, stable- continue on irbesartan,hold lasix bronchial asthma, not in acute exacerbation history of PE on Coumadin, INR therapeutic -monitor PT/INR history gastric bypass history of traumatic subdural hematoma Bilateral adrenal nodules on outpatient imaging Complicated UTI, no sepsis for now, pansensitive E. coli on outpatient urine CS, ongoing cephalosporin Rx Please note the above document was generated using voice recognition software. It may contain grammatical, syntax or spelling errors. Any formal questions or concerns about the content, text or information contained within the body of this dictation should be directly addressed to the provider for clarification Admission and Anticipated Discharge Date Admission Date: March 20, 2025 Subjective Patient seen and examined at bedside. She reports that the pain has remarkably improved since the morning. She is comfortable; able to walk around without any issues. Review of Systems Review of Systems: All systems reviewed & are unremarkable except as noted in Subjective Physical Exam Physical Exam: Constitutional: WD/WN, vitals as above, NAD, sitting up in bed, pleasant, conversing easily Respiratory: normal respiratory effort, lungs clear to auscultation, no wheeze, rales, rhonchi. Normal insp/exp effort, no accessory muscle use Cardiovascular: RRR, no murmur, no edema Vessels: no JVD or carotid bruit Chest: normal inspection of chest Abdomen: normal bowel sounds, soft, nontender, no hepatosplenomegaly Musculoskeletal: Soft, nontender. No para spinal vertebral tenderness. Neurologic: PERRL, EOMI, accommodation nl, no face palsy, no dysarthria CN's II- XI intact bilaterally and moves all extremities Psychiatric: A+Ox3, euthymic affect Results & Data Results & Data Vital Signs (Past 12 Hours) Vital Signs Temp Pulse Resp BP Pulse Ox O2 Del Method 03/21/25 08:01 36.4 C L 65 20 130/85 100 Room Air
[2025-03-21] MEDS: WARFARIN SOD 5 MG TAB PO SCH (21:10)
[2025-03-21] MEDS: MULTIVITAMIN TAB PO SCH (21:11)
[2025-03-21] MEDS: FAMOTIDINE 40 MG TABLET PO SCH (21:12)
[2025-03-21 22:47] VITALS: RESP 16
[2025-03-22] MEDS: LORazepam 0.5 MG TAB PO PRN (02:44)
[2025-03-22] MEDS: LINACLOTIDE 145 MCG CAPSULE PO SCH (05:40)
[2025-03-22 07:18] LABS: Hematocrit (blood only) 36.9 % (37.0-47.0); Hemoglobin 12.3 g/dL (12.0-16.0); Immature Granulocytes # (auto) 0.02 K/uL (0.01-0.20); Immature Granulocytes % (auto) 0.4 %; Mean Corpuscular Hemoglobin 32.2 pg (25.0-34.0); Mean Corpuscular Volume 96.6 fL (80.0-100.0); Platelet Count 268 K/uL (130-400); RDW Standard Deviation 49.4 fL (36.4-46.3); Red Blood Count 3.82 M/uL (4.20-5.40); White Blood Count 4.50 K/ul (4.8-10.8)
[2025-03-22 07:23] VITALS: BP 110/72; PULSE 68; TEMP 97.2; O2SAT 99
[2025-03-22 07:49] LABS: INR 2.2 (0.9-1.1); Prothrombin Time 22.4 Seconds (9.0-12.0)
[2025-03-22 07:54] LABS: Anion Gap 3.0 (3-11); Blood Urea Nitrogen 13.0 mg/dl (6-23); Calcium 8.5 mg/dl (8.6-10.3); Carbon Dioxide 27.0 mmol/L (21-32); Chloride 108.0 mmol/L (98-107); Creatinine Clr Calc Pharmacy 135.4 ml/min; Glucose 78.0 mg/dl (70-99(Fasting)); Potassium 4.1 mmol/L (3.5-5.1); Sodium 138.0 mmol/L (136-145)
--- NOTE | 2025-03-22 11:03 | Discharge Summary ---
Date of Service March 22, 2025 Admission HPI Per Admitting Provider History obtained from patient, family, and records. Medical history significant for hypertension, bronchial asthma, hypercoagulable state (hx PE/DVT status post IVC filter placement last prothrombin gene mutation) on Coumadin, history gastric bypass, GERD, history of traumatic subdural hematoma, adrenal nodules as per records, morbid obesity. Last confinement 2018 for UGIB. 2 weeks history of achy right flank pain complaints somewhat similar to kidney stone. Denies hematuria, fever, chills. No chest pain, no SOB. No recollection of recent trauma. Flank pain somewhat worse on ambulation. Patient seen at PCPs office last week. UA WBC esterase Urine CS later grew pansensitive E. coli. Renal ultrasound showed Cortical scarring in the mid-segment of the right kidney. No hydronephrosis bilaterally. Patient prescribed oral Cefuroxime prescribed course. Worsening pain despite antibiotic Rx. Right-sided low back pain without radiation to the legs. Denies leg weakness. No fever, no chills. Intractable pain at the ER. Medical History as above Surgical History : IVC filter, section, panniculectomy, gastric revision/bypass, appendectomy, tonsillectomy, cholecystectomy, cystocele repair, hip replacement, liver biopsy) Family History : Stomach cancer Personal/Social history : Non-smoker, occasional Et[employer] intake, grades 1 through 6 teacher Admission Exam Per Admitting Provider GENERAL: Uncomfortable, morbidly obese, no respiratory distress SKIN: Normal color, warm HEENT: [place] palpebral conjunctivae, no ptosis, dry buccal mucosa NECK : Supple, no tenderness CHEST : CTA, no tenderness HEART : RRR, no obvious murmurs ABDOMEN: Some distention, nontender BACK : Right low back tenderness, negative SLR EXTREMITIES : Minimal LE swelling, no LE tenderness, palpable pulses, no other conspicuous deformities noted NEUROLOGIC : Coherent, no facial asymmetry, gait and stance not assessed Principal Diagnosis Right flank pain Intractable symptoms Likely musculoskeletal Discharge Exam Constitutional: WD/WN, vitals as above, NAD, sitting up in bed, pleasant, conversing easily Respiratory: normal respiratory effort, lungs clear to auscultation, no wheeze, rales, rhonchi. Normal insp/exp effort, no accessory muscle use Cardiovascular: RRR, no murmur, no edema Vessels: no JVD or carotid bruit Chest: normal inspection of chest Abdomen: normal bowel sounds, soft, nontender, no hepatosplenomegaly Musculoskeletal: Soft, nontender. mild tenderness on right paravertebral muscles Neurologic: PERRL, EOMI, accommodation nl, no face palsy, no dysarthria CN's II- XI intact bilaterally and moves all extremities Psychiatric: A+Ox3, euthymic affect Discharge Data Allergies Allergy/AdvReac Type Severity Reaction Status Date / Time amoxicillin Allergy Intermediate HIVES Verified 03/20/25 20:18 morphine Allergy Intermediate HALLUCINATI Verified 03/20/25 20:18 ONS oxycodone Allergy Intermediate SEVERE PAIN Verified 03/20/25 20:18 Sulfa (Sulfonamide Allergy Mild RASH Verified 03/20/25 20:18 Antibiotics) sulfamethoxazole Allergy Mild Rash Verified 03/20/25 20:18 [From Bactrim] trimethoprim [From Bactrim] Allergy Mild Rash Verified 03/20/25 20:18 ketorolac [From Toradol] Allergy Unknown Unknown Verified 03/20/25 20:18 codeine AdvReac Intermediate IRRITABLE Verified 03/20/25 20:18 Consultations 03/20/25 19:55 ED Decision to Admit Stat Ordered Studies 03/20/25 17:11 CT abd pelvis IV con only Stat 03/20/25 21:09 CT lumbar spine w con Urgent 03/20/25 22:39 MRI Lumbar Spine [MR lumbar spine wo con] Stat Hospital Course (1) Flank pain: Right flank pain Intractable symptoms Likely musculoskeletal Patient presented with severe right-sided flank pain. Imaging results including abdominal CT, lumbar CT and lumbar spine MRI do not show any acute finding.Abdominal CT shows unchanged 1.5cm right adrenal nodule compared to 12/2023. Patient reported improvement with pain medication during the hospitalization along with muscle relaxant. She was discharged home with as needed Tylenol; also Bailey if the pain is very severe. Patient was also given prescription for Zanaflex 3 times daily for 5 days. Discussion was done to hold off on baclofen while on Zanaflex. outpatient work up for adrenal nodule; follow up with PCP Please note the above document was generated using voice recognition software. It may contain grammatical, syntax or spelling errors. Any formal questions or concerns about the content, text or information contained within the body of this dictation should be directly addressed to the provider for clarification Total Time Total Time Spent Total Time Spent (In Minutes): 45 Total Time Includes: Examination of the Patient, Discharge Planning, Medication Reconciliation, Communication With Other Providers and Other Discharge Plan Discharge Items Patient Disposition: Home - Self-Care Reason For Visit: BACK PAIN Discharge Diagnosis: Right flank pain Intractable symptoms Likely musculoskeletal Condition on Discharge: Fair Activity: Resume your previous activity Non-emergency contact: Primary Care Provider Call non-emergency contact if: you have any medication questions and your symp toms worsen Follow-up/Referrals: Ethan Wilcox MD [Primary Care Provider] - (Date & Time 03/26/2025 2:00 PM Provider: Ethan Wilcox MD [facility] ) Diet: Regular Addtl Attending Provider Instructions: You were admitted to the hospital due to flank pain on the right side. You underwent CT and MRI which did not show any fractures/dislocations or acute injuries. You have been prescribed Zanaflex 2 mg to be taken 3 times a day for 5 days. Please do not take baclofen while you are on Zanaflex. For pain control, take Tylenol as needed. If pain is very severe; you have been prescribed Bailey. Limit the amount of Tylenol to 4 g/day. Please continue to take the antibiotic that you have been prescribed. Please do not take tramadol and Bailey together. Tramadol has been stopped. Prednisone can be stopped as well. Pending Studies at Discharge: No Stand-Alone Forms: My [facility] [employer], Smoking Cessation Medications and DC Order Prescriptions: New hydrocodone-acetaminophen 5-325 mg Tablet 1 tab PO QID PRN (Reason: pain) Qty: 7 0RF tizanidine [Zanaflex] 2 mg capsule 2 mg PO Q8H PRN (Reason: muscle spasticity) 5 Days Qty: 15 0RF Continued polyethylene glycol 3350 [Miralax] 17 gram/dose Powder 17 g PO DAILY PRN (Reason: Constipation) multivitamin Tablet 1 tab PO HS furosemide [Lasix] 40 mg Tablet 40 mg PO QAM Premarin 0.625 mg/gram cream 1 applic vaginal UD nystatin 100,000 unit/gram Cream 1 applic TOPICAL DAILY PRN (Reason: Rash) bupropion HCl [Wellbutrin SR] 150 mg Tablet Sustained-Release 12 Hr 150 mg PO Q12H sucralfate [Carafate] 1 gram Tablet 1 g PO QID PRN (Reason: GASTRIC PAIN) famotidine [Pepcid] 40 mg Tablet 40 mg PO HS calcium carbonate-vitamin D3 600 mg-5 mcg (200 unit) Tablet 2 tab PO BID torsemide 100 mg Tablet 100 mg PO DAILY PRN (Reason: Fluid Retention) tamsulosin 0.4 mg Capsule 0.4 mg PO DAILY pantoprazole [Protonix] 40 mg Tablet,Delayed Release (Dr/Ec) 40 mg PO QAM cyanocobalamin (vitamin B-12) 1,000 mcg/mL Solution 1,000 mcg SUBCUT Q3M irbesartan 75 mg Tablet 75 mg PO DAILY cefuroxime axetil 500 mg Tablet 500 mg PO BID Rx Instructions: FOR 10 DAYS STARTED 03/16/2025 Linzess 145 mcg Capsule 145 mcg PO DAILYBB warfarin 2.5 mg Tablet 2.5 mg PO .EVERY & Rx Instructions: EVERY WEDNESDAY & WEDNESDAY warfarin 5 mg Tablet 5 mg PO .SEE ATTACHED Rx Instructions: TAKE 5 MG BY MOUTH WEDNESDAY, WEDNESDAY, WEDNESDAY, WEDNESDAY, & WEDNESDAY. mometasone 50 mcg/actuation [place],Non-Aerosol 1 spray INTRANASAL DAILY PRN (Reason: Congestion) Rx Instructions: administer into each nostril Changed acetaminophen [Tylenol Extra Strength] 500 mg Tablet 1,000 mg PO Q6H PRN (Reason: Pain) Qty: 0 0RF Held baclofen 10 mg Tablet 10 mg PO HS PRN (Reason: MUSCLE SPASMS) Hold Instructions: Resume on 03/27/25. HOld till you are done with Zanaflex Discontinued tramadol 50 mg Tablet 50 mg PO Q6H PRN (Reason: Pain) prednisone 20 mg Tablet 20 mg PO .TAPER DOSE Rx Instructions: TAKE 20 MG BY MOUTH THREE TIMES DAILY FOR 3 DAYS, 20 mg TWICE DAILY FOR 3 DAYS, 20 mg DAILY FOR 3 DAYS; STARTED 03/16/2025 Discharge Orders: Discharge Order (Routine); Ordered 03/22/25 Ordered By: Sven Knutson Admission Data Admit Date/Time: 03/20/25 20:30 Attending Provider: Sven Knutson Admit Provider: Guerrero Mackay Primary Care Provider: Ethan Wilcox Other Providers: Guerrero Mackay Other Interventions: Discharge Summary Assessment (RN) Last Done: 03/22/25 10:36
[2025-03-22] MEDS ORDERED: WARFARIN SOD 2.5 MG TAB PO SCH (16:00)
== END 2025-03-22 12:28 | disposition home or self-care (01) ==
LOC: 3N 17:04 → ED 17:04 → 3N 21:57